=== PATIENT | male | born 1965 | race Caucasian/White ===

== ENCOUNTER 2017-08-19 22:12 | Emergency (ER) | payer OTHER ==
[~2017-08-19] VITALS: Ht 177.8 cm; Wt 88.9 kg
[2017-08-19 22:21] VITALS: BP 130/89
--- NOTE | 2017-08-19 22:25 | ED INFLUENZA/URI COMPLAINT ---
History of Present Illness General Chief Complaint: General Adult Stated Complaint: PT POSSIBLE FLU Source: patient Exam Limitations: no limitations Vital Signs & Intake/Output Vital Signs & Intake/Output Vital Signs Date Time Temp Pulse Resp B/P B/P Pulse O2 O2 Flow FiO2 Mean Ox Delivery Rate 08/20 2223 99 Room Air 08/19 2220 98.3 98 18 130/89 99 Room Air Allergies Coded Allergies: No Known Allergies (08/19/17) Reconcile Medications Amoxicillin 875 MG TABLET 1 TAB PO BID strep throat Triage Note: PT FROM HOME C/O SORE THROAT/FLU LIKE S/S. PT STATES "SINCE MY DAUGHTER IS HERE IN A ROOM I THINK I NEED TO BE CHECKED FOR THE FLU" PT STATES SINCE LAST THURSDAY SORE THROAT, DRY COUGH, FEVER ON THURSDAY AND CHILLS. PTS VSS, AFEBRILE IN TRIAGE. DIOGO Benson IN FOR EVAL. FLU SWAB AND THROAT CULTURE AND QUICK COLLECTED AND SENT. Triage Nurses Notes Reviewed? yes Onset: Abrupt Duration: week(s): (1), constant, continues in ED Timing: recent history Severity: moderate, severe No Modifying Factors: none HPI: 52-year-old male comes into the emergency room with sore throat for the past week with associated chills body aches. Mild runny nose. Cough earlier on but no cough currently. Comes in for further evaluation. His daughter is currently in the emergency room. (Baldo Martin) Past History Travel History Traveled to [place] past 21 day No Medical History Any Pertinent Medical History? see below for history Cardiovascular: hyperlipidemia Surgical History Surgical History: non-contributory Psychosocial History What is your primary language Tajik Tobacco Use: Current Daily Use Daily Tobacco Use Amount/Type: => 5 Cigarettes daily Family History Hx Contributory? No (Baldo Martin) Review of Systems Review of Systems Constitutional: Reports: see HPI. EENTM: Reports: see HPI. Respiratory: Reports: see HPI. Cardiovascular: Reports: no symptoms. GI: Reports: no symptoms. Genitourinary: Reports: no symptoms. Musculoskeletal: Reports: no symptoms. Skin: Reports: no symptoms. Neurological/Psychological: Reports: no symptoms. Hematologic/Endocrine: Reports: no symptoms. Immunologic/Allergic: Reports: no symptoms. All Other Systems: Reviewed and Negative (Baldo Martin) Physical Exam Physical Exam General Appearance: well developed/nourished, no apparent distress, alert, awake Head: atraumatic, normal appearance Eyes: Bilateral: normal appearance. Ears, Nose, Throat: normal ENT inspection, hearing grossly normal, pharyngeal erythema Neck: normal inspection Respiratory: no respiratory distress Cardiovascular: regular rate/rhythm Back: normal inspection Extremities: normal inspection, no edema Neurologic/Psych: awake, alert, oriented x 3, normal gait Skin: intact, normal color Core Measures Sepsis Present: No Sepsis Focused Exam Completed? No (Baldo Martin) Progress Differential Diagnosis: influenza, pneumonia, pharyngitis, sinusitis, strep pharyngitis Plan of Care: Orders Procedure Date/time Status RAPID VIRAL INFLUENZA A 08/19 2226 Complete THROAT CULTURE W/QUICK STREP 08/19 2226 Complete Microbiology 08/19 2226 NASOPHARYN: Influenza Virus A & B Rapid Smear - COMP Initial ED EKG: none (Baldo Martin) Departure Departure Disposition: HOME OR SELF CARE Condition: Stable Clinical Impression Primary Impression: Strep throat Additional Instructions: Taking amoxicillin as prescribed. Follow-up with her primary care doctor as needed. Return if any concerns worsening symptoms. Please go over all results of today's visit with your primary care doctor. Contact your primary care doctor to let them know you were here in the emergency room. There may be nonspecific findings which may not be related to your visit today here in the emergency room but may require further evaluation and chronic monitoring by your primary care doctor. If you had a laceration today the chance of foreign body always remains. You should follow-up with your primary care doctor for recheck in 3-5 days for a wound check. If you had an x-ray done there is a chance that a fracture could have been missed on initial read and you should follow-up with your primary care doctor for repeat x-rays if symptoms persist. If your blood pressure was elevated here in the emergency room please have rechecked by [facility] primary care doctor within the next 48. If you were prescribed a narcotic here in the emergency room or any type of controlled substances you're not allowed to drive while taking this medication or operate any type of heavy machinery. Narcotics can make you feel lightheaded dizziness nausea and can cause constipation. You may need to merchandise pickup/receiving associate a stool softener. Thank you for choosing [facility] emergency room. Please return to the emergency room immediately if you have any other concerns worsening of symptoms. Departure Forms: Customer Survey General Discharge Information Prescriptions: Current Visit Scripts Amoxicillin 1 TAB PO BID #20 TAB Comments 08/19/2017 11:26:14 PM Patient clinically looks well. Positive strep. Treat symptomatically. Return if any concerns (Baldo Martin) PA/WHITE KID BUFFER Co-Sign Statement Statement: ED Attending supervision documentation- [] I saw and evaluated the patient. I have also reviewed all the pertinent lab results and diagnostic results. I agree with the findings and the plan of care as documented in the PA's/WHITE KID BUFFER's documentation. [X] I have reviewed the ED Record and agree with the PA's/WHITE KID BUFFER's documentation. [] Additions or exceptions (if any) to the PAs/WHITE KID BUFFER's note and plan are summarized below: [] (Gale CROWE,Sharon)
[2017-08-19] MEDS ORDERED: AMOXICILLIN875 M1 PO (23:13)
== END 2017-08-19 23:23 ==
LOC: ERH 22:12
DX: J02.0 Streptococcal pharyngitis (principal); Z72.0 Tobacco use
CPT/HCPCS: 87804; 87804-59

== ENCOUNTER 2018-01-13 19:10 | Inpatient (IN) | payer OTHER ==
[~2018-01-13] VITALS: Ht 177.8 cm; Wt 92.6 kg
[~2018-01-13 19:10] MED LIST: AMOXICILLIN875 M1 PO
[2018-01-13] MEDS ORDERED: ASPIRIN EC81 M1 PO (19:50)
[2018-01-13] MEDS ORDERED: ATORVASTATIN CA20 M1 PO (19:51)
[2018-01-13] MEDS ORDERED: COLD & FLU SEV1 EACH PO (19:54)
[2018-01-13 20:03] LABS: ABSOLUTE BASOPHIL COUNT 0 /CUMM (0.0-0.2); ABSOLUTE EOSINOPHIL COUNT 0.1 /CUMM (0.0-0.7); ABSOLUTE LYMPH COUNT 2.8 /CUMM (1.2-3.4); ABSOLUTE MONOCYTE COUNT 0.7 /CUMM (0.10-0.60); BASOPHIL % 0.3 % (0.0-2.0); EOSINOPHIL % 0.8 % (0-5); GRANULOCYTE % 71.3 % (42.2-75.2); HEMATOCRIT 48.3 % (42-52); MEAN CORPUSCULAR HGB 31.9 PG (27.0-31.0); MEAN CORPUSCULAR HGB CONC 33.8 G/DL (33.0-37.0); MEAN CORPUSCULAR VOLUME 94.3 FL (80.0-94.0); MEAN PLATELET VOLUME 7.5 FL (7.4-10.4); PLATELET COUNT 296 /CUMM (130-400); RBC DISTRIBUTION WIDTH 13.6 % (11.5-14.5); RED BLOOD CELL CT 5.12 /CUMM (4.70-6.10); WHITE BLOOD CELL COUNT 12.6 /CUMM (4.8-10.8)
--- NOTE | 2018-01-13 20:41 | CT SCAN REPORT ---
EXAMINATION: CT ANGIOGRAM OF THE CHEST, ABDOMEN, AND PELVIS WITH AND WITHOUT CONTRAST CLINICAL INFORMATION: Back pain radiating to the abdomen. Dissection COMPARISON: None. DESCRIPTION: Initial noncontrast images through the chest were obtained. Subsequently, arterial phase multidetector volumetric imaging was performed through the chest following the administration of 150 mL Omnipaque 350 intravenous contrast. No contrast reaction reported Sagittal and coronal reformatted images were obtained on the technologist workstation. After extensive post-processing on a dedicated 3-D workstation, 3-D reformatted images were uploaded to PACS and reviewed as well. Total exam dose-length product 654 mGy-cm COMPARISON: None FINDINGS: VASCULAR: 1. Ascending thoracic aorta: No aneurysm or dissection. 3.6 cm diameter. 2. Thoracic aortic arch: No aneurysm or dissection. 2.8 cm diameter. 3. Descending thoracic aorta: No aneurysm or dissection. Mild noncalcified peripheral atherosclerotic disease. 3 cm diameter. 4. Abdominal aorta: Tortuous. There is focal aneurysmal dilatation of the anterior wall of the distal abdominal aorta, at most 2 cm in diameter compared to 1.6 cm more proximally. 5. Mesenteric arteries: Celiac and superior mesenteric arteries are patent. 6. Renal arteries: Two patent right renal arteries are seen. There is a single left renal artery. NONVASCULAR: LUNG: There is atelectasis and motion artifact at the lung bases. No focal consolidation or mass. PLEURA: No pleural effusion or pneumothorax. MEDIASTINUM: Normal heart size. No pericardial effusion. No hilar or mediastinal lymphadenopathy. CHEST WALL/AXILLA: No axillary or internal mammary lymphadenopathy. LIVER, GALLBLADDER, AND BILIARY TREE: The liver is normal in size, shape, and attenuation. No focal hepatic lesion or biliary ductal dilatation is present. The gallbladder is unremarkable with no evidence of radiopaque gallstones, gallbladder wall thickening, or obvious pericholecystic inflammatory changes. PANCREAS: Normal; no mass or surrounding fluid. SPLEEN: Normal size. No focal lesion. ADRENAL GLANDS: Normal; no mass. KIDNEYS AND URETERS: There are left upper pole water density simple cysts including a 5.7 cm superior cyst and a 4.9 cm cyst anterior to the upper pole of the left kidney. No hydronephrosis. No radiopaque urolithiasis. There is a 2.9 cm right upper pole renal cyst. GASTROINTESTINAL TRACT: Stomach and small bowel non-dilated. No colonic wall thickening or pericolonic inflammatory changes. Normal appendix. ABDOMINAL WALL: There is fat in the inguinal canals bilaterally. LYMPH NODES: No pathologically enlarged lymphadenopathy. BLADDER: No focal mass or wall thickening seen. No bladder calculi. PELVIC VISCERA: Mild prostatomegaly. The seminal vesicles are symmetric. OSSEOUS STRUCTURES: No acute or suspicious osseous abnormality. IMPRESSION: No aortic dissection. Aneurysmal dilation of the anterior aspect of the distal abdominal aorta to 2 cm in diameter, compared to 1.6 cm proximally. See aguilar image. Bilateral renal cysts.
--- NOTE | 2018-01-13 21:36 | History & Physical ---
Srinivas Chahal 01/13/18 2135: General Information and HPI MD Statement: I have seen and personally examined JORJE PHELAN and documented this H&P. The patient is a 52 year old M who presented with a patient stated chief complaint of [intractable back/abdominal pain]. 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 Pt was in obvious pain during interview, sedated 2/2 pain medication, history obtained mostly from chart review and pts . Pt had recently experienced back pain 2 days ago, unsure of what started it; in no relation to lifting or trauma, which he had called his PCP about. Per pt is healthy, does not typically complain about pain which concerned her seeing him in his current condition. had given OTC pain medications to patient and massage which did not help his pain, and his pain acutely worsened today after turning his body while reversing in a car. He stated that the pain went from the back and radiated bilaterally towards the abdomen; during examination stated pain was only in the "stomach muscle" at rest. States that movement makes the pain worse. States the pain is constant. Initially a 10/10 on acute presentation, but during time of clinical interview after getting medicated was a 4/10. Denies weakness, denies urinary/bowel incontinence, denied fevers/chills/night sweats. Denies any recent sick contacts. Denies trauma or heavy lifting recently. 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, is sedentary at his job ROS Positive for: Pain worse with movement Negative for: Fevers, Chills, Night sweats, Chest pain, Nausea/Vomiting, Urinary symptoms, Urinary/Fecal incontinence, Weakness/Decreased sensation Allergies/Medications Allergies: Coded Allergies: No Known Allergies (08/19/17) Past History Travel History Traveled to [place] past 21 day No Medical History Neurological: NONE EENT: NONE Cardiovascular: hyperlipidemia Respiratory: NONE Gastrointestinal: NONE Hepatic: NONE Renal: NONE Musculoskeletal: NONE Psychiatric: NONE Endocrine: NONE Blood Disorders: NONE Cancer(s): NONE EMULSION OPERATOR/Reproductive: NONE Surgical History Surgical History: non-contributory Review of Systems Review of Systems Constitutional: Reports: see HPI. Exam & Diagnostic Data Last 24 Hrs of Vital Signs/I&O Vital Signs Date Time Temp Pulse Resp B/P B/P Pulse O2 O2 Flow FiO2 Mean Ox Delivery Rate 01/14 0200 Nasal 2.0L Cannula 01/13 2300 98.1 74 18 132/86 90 01/13 2144 98.6 75 18 122/65 96 Room Air 01/13 1950 91 20 158/80 97 Room Air 01/13 1918 96 Room Air 01/13 1914 98.3 87 20 173/93 96 Room Air Intake & Output 01/14 0800 01/14 0000 01/13 1600 Intake Total 0 Output Total Balance 0 Intake, Oral 0 Patient 200 lb Weight Physical Exam General Appearance Alert, Oriented X3, Cooperative, Moderate Distress (obvious pain, diaphoretic) Skin No Rashes, diaphoretic Skin Temp/Moisture Exam: Cool/Diaphoretic Neck Supple, FROM Cardiovascular Regular Rate, Normal S1, Normal S2 Lungs Clear to Auscultation, Normal Air Movement Abdomen Soft, marked tenderness in dermatomal distribution T8-T11 Neurological Strength at 5/5 X4 Ext, Normal Tone, Sensation Intact, Cranial Nerves 3-12 NL, TTP, spinous process and paravertebral musculature b/l in lumbar spine Extremities No Edema, b/l paravertebral hypertonicity Body Front and Back (Adult) 1) TTP 2) TTP, hypertonicity Last 24 Hrs of Labs/Jt: Laboratory Tests 01/13/182220: Lactic Acid Cancelled 01/13/181952: Anion Gap 12, Estimated GFR > 60, BUN/Creatinine Ratio 13.3, Glucose 140 H, Lactic Acid 1.0, Calcium 9.4, Total Bilirubin 1.1, AST 17, ALT 30, Alkaline Phosphatase 78, Troponin I < 0.01, Total Protein 7.0, Albumin 4.1, Globulin 2.9, Albumin/Globulin Ratio 1.4, Lipase 82, CBC w Diff NO MAN DIFF REQ, RBC 5.12, MCV 94.3 H, MCH 31.9 H, MCHC 33.8, RDW 13.6, MPV 7.5, Gran % 71.3, Lymphocytes % 22.0, Monocytes % 5.6, Eosinophils % 0.8, Basophils % 0.3, Absolute Granulocytes 9.0 H, Absolute Lymphocytes 2.8, Absolute Monocytes 0.7 H, Absolute Eosinophils 0.1, Absolute Basophils 0 Assessment/Plan Assessment: Mr Phelan is a 52 M with a PMH of HLD who presents with a 2 day history of back pain acutely worsened prior to admission after a twisting motion that is intractable and radiates to the abdomen in a dermatomal distribution. He is admitted for intractable back pain. Differentials include muscular strain; muscular spasm; lumbar nerve impingement; less likely radiculopathy/spinal cord infarction/transection given no focal neuro deficits/weakness/decreased sensation. He will go for an MRI of the thoracic and lumbar spine in the morning. #Intractable back/abdominal pain -CTA neg for AAA -Lactate negative, doubt mesenteric ischemia given CTA findings -MRI in the AM for better imaging -Neurosurg consult depending on imaging findings -NSAIDs, Valium, Flexeril for pain management. Avoid opiates 2/2 sedation -PT eval when pain better controlled -Was straight leg raise + to B/L LE -Neuro checks #HLD -Continue home medications DVT PPx IV access Regular Diet Full Code Disposition pending PT eval As Ranked By This Provider Problem List: 1. Back pain Core Measures/Misc (03/01) Acute Coronary Syndrome ACS Diagnosis: No Congestive Heart Failure Congestive Heart Failure Diagnosis No Cerebrovascular Accident CVA/TIA Diagnosis: No VTE (View Protocol) VTE Risk Factors Age>40 No Mechanical VTE Prophylaxis d/t N/A MechProphylax Ordered No VTE Pharm Prophylaxis d/t NA PharmProphylax ordered Sepsis (View protocol) Sepsis Present: No If YES complete Sepsis Event Note If YES complete Sepsis Event Note Paul CROWE,Alee 01/14/18 0052: General Information and HPI Allergies/Medications Home Med list Aspirin (Ecotrin*) 81 MG TABLET.DR 1 TAB PO PRN HEART/BLOOD (Reported) Atorvastatin Calcium 20 MG TABLET 1 TAB PO DAILY CHOLESTEROL (Reported) Core Measures/Misc (03/01) Sepsis (View protocol) If YES complete Sepsis Event Note If YES complete Sepsis Event Note Attending MD Review Statement Attending Statement Attending MD Statement: examined this patient, discuss w/resident/PA/CANDLE MAKER, agreed w/resident/PA/CANDLE MAKER Attending Assessment/Plan: This is a 52-year-old gentleman with a past medical history significant for hyperlipidemia who presents to the hospital for evaluation of acute intractable back pain. Patient's history was primarily obtained by his who is at the bedside. She mentioned that he was reversing his car when he suddenly turned his neck to the right to look back he developed shooting pain involving his shoulders, trapezius and mid back radiating to his mid abdomen bilaterally. Patient's states that he has been complaining of pain over his scapula and trapezius over the past 1-2 days. 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 In the emergency department he remained hemodynamically stable and had a CTA of the chest and abdomen to rule out dissection, these results were negative. There is also no evidence of mesenteric ischemia or other intra-abdominal abnormalities. Patient received 4 mg of morphine IV 3 and was sedated upon my evaluation, but arousable. At approximately 4:30 AM the patient's pain medication began to wear off and he developed excruciating back and abdominal pain, hypertensive urgency and sinus tachycardia. Given the original negative results for the CTA of the chest and abdomen there was a concern that the patient may need to be developing an acute change in his clinical status therefore a stat CT scan of the entire spine with IV contrast was ordered in order to evaluate any additional pathology which could be explaining the patient's intractable pain. The differential diagnosis at that time included herniated disc, muscle tear, pneumoperitoneum or less likely spinal cord compression. The CT results were reported to me as free air under the diaphragm likely secondary to perforated viscus. I instructed the learning and development intern and resident to immediately contact surgery. Patient was successfully taken to the OR a few hours later and transferred to the medical ICU. Opal Anand 01/14/18 0412: Core Measures/Misc (03/01) Sepsis (View protocol) If YES complete Sepsis Event Note If YES complete Sepsis Event Note Resident Review Statement Resident Statement: examined this patient, discussed with learning and development intern, agreed with learning and development intern, discussed with family, reviewed EMR data (avail), discussed with nursing , discussed with case mgmt, reviewed images, amended to note Other Findings: Mr. Phelan is a 52yo M w/ PMH of HLD, AAA 1.6cm -> 2cm on ER imaging, BIBA to ER from [facility] w/ acute onset of 10/10 sharp upper ab pain w/ diaphoresis, w/o N/V/D. Patient appeared to be lethargic to answer questions after being medicated with morphine for pain control during our clinical interaction in ER. Per triaging notes, patient was AO x 3 and conversational on ER presentation, and the pain was sudden onset when he turned his head/body during adflyer shopping. Patient had no previous similar episodes. THe back pain started 2-3 days ago, with recent falls about 2 weeks ago. He was in [facility] to get this pain meds prescribed by PCP. On admission, Vitals: stable afebrile, BP 173/92 -> 158/80, HR 91, RR 20, 97% RA Physical exam was limited due to patient's lethargy. However, pertinent findings including 4-6/10 pain on mostly thoracic/lumbar paraspinal muscles on palpation, and positive straight leg raise to 30 degree bilaterally, without shooting pain down the thigh/loss of sensations/neurological deficit. -CBC: mild leukocytosis 12.6, H/H 16.3/48.3, -CMP: unremarkable w/ -ve trop x 1, lipase 82 -UA/Microbiology: pending. previous microbiology w/ Strept A throat -Imagings: CTA AB/Chest No aortic dissection. Aneurysmal dilation of the anterior aspect of the distal abdominal aorta to 2 cm in diameter, compared to 1.6 cm proximally. See aguilar image. Bilateral renal cysts. -EKG: NSR w/o significant ST-T abnormalities, unchanged from previous. -Last Echo: None -Interventions in ER: NS bolus x 1, Morphine 4mg IV x 3, Toradol 30mg IV x 1, Valium 5mg PO x 1 Problem list/Assessment/Hospital Course: #Intractable back/ab pain w/o clear etiology,pending further eval - Presumably more musculoskeletal based on history without any neurological deficit. Unlikely sciatica as not typical on PE. Radiculopathy could also be contributing factor based on positive straight leg raise but would need MRI in the AM. 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 - O2 if needed, however currently under RA stable - PT/OT per clinical course once pain alleviated. - Continue home meds - Pending MRI spine to rule out any osteo process in the AM. May require neurosurgery input if any positive findings including radiculopathy/cord compression. - Pain per pathway, currently patient was controlled with morphine/toradol however was exteremly lethargy on admission due to opioids. - Will continue w/ Tylenol/Toradol with flexeril/lidoderm patch, and avoid opioids as much as possible. DVT prophylaxis Pharm PPX + ALPS Regular Diet IV Access: Peripheral IV Full Code update 0630 01/14/2018 Critical result was called back from [facility] regarding patient's repeated imaging as below: "The primary finding is that of a moderate amount of free air within the abdominal cavity. This therefore is a sign of a perforated viscus which has occurred since yesterday at 7:26 PM. Extensive fat stranding is seen in the region of the gastric outlet and proximal duodenum and therefore the site of perforation is thought to be the duodenum." Immediately notified surgical PA on floor and placed stat consult for on-call surgeon (Dr. Mejia). Discontinued Flexeril/Toradol, will control pain w/ dilaudid. Pending Surgery consult for OR. Family updated at bedside regarding plans. dilaudid.
--- NOTE | 2018-01-13 21:54 | ED GENERAL ADULT ---
History of Present Illness General Chief Complaint: Abdominal Pain/Flank Pain Stated Complaint: INTRACTABLE BACK PAIN Source: patient Exam Limitations: no limitations Vital Signs & Intake/Output Vital Signs & Intake/Output Vital Signs Date Time Temp Pulse Resp B/P B/P Pulse O2 O2 Flow FiO2 Mean Ox Delivery Rate 01/14 1854 100.3 01/14 1600 Nasal 2.0L Cannula 01/14 1600 99.0 109 18 136/90 99 Nasal 2.0L Cannula 01/14 1446 96 Nasal 2.0L Cannula 01/14 1300 98.5 84 14 130/88 95 Nasal 2.0L Cannula 01/14 0800 Nasal 2.0L Cannula 01/14 0638 97.7 107 22 178/110 93 01/14 0631 98.8 140 24 190/100 92 01/14 0200 Nasal 2.0L Cannula 01/13 2300 98.1 74 18 132/86 90 01/13 2144 98.6 75 18 122/65 96 Room Air ED Intake and Output 01/14 0000 01/13 1200 Intake Total 0 Output Total Balance 0 Intake, Oral 0 Patient 200 lb Weight Allergies Coded Allergies: No Known Allergies (08/19/17) Reconcile Medications Aspirin (Ecotrin*) 81 MG TABLET.DR 1 TAB PO PRN HEART/BLOOD (Reported) Atorvastatin Calcium 20 MG TABLET 1 TAB PO DAILY CHOLESTEROL (Reported) Triage Note: PT BIBA FROM [facility] WHERE PT WAS IN LINE D/T GENERALLY NOT FEELING WELL X1 WEEK. PT EXPERIENCED ACUTE ONSET OF 10/10 SHARP UPPER ABD PAIN INTERMITTENTLY. PT DIAPHORETIC, MOANING ON STRETCHER. DENIES N/V/D. Triage Nurses Notes Reviewed? yes Onset: Abrupt Duration: minute(s): Timing: constant HPI: 52-year-old male with a history of hyperlipidemia presenting with sudden onset of abdominal pain and back pain just prior to arrival. Patient reports that he has had mild upper and lower back pain over the past week. The pain has been worse with movement, there was no acute back injury or recent strenuous activity. Saw his PMD today and was given a prescription for pain medication and muscle relaxer, and given a slip for outpatient x-rays of the thoracic and lumbar spine which he has not yet completed. Pt was backing out of his driveway to go to the pharmacy and leaf size picker his medication, when backing out of his driveway he turned to look over his right shoulder as he was backing up and developed sudden onset of diffuse abdominal pain that is radiating to his back. Pain has no worsening or alleviating factors. Pt continued driving in an attempt to get to the pharmacy and get his pain medications hoping they would help to alleviate his discomfort. While waiting in line at the pharmacy he became pale and diaphoretic with worsening abdominal pain. Pharmacy staff called EMS. Upon arrival to the ED pt is in severe distress with pain, rolling around on the stretcher holding his abdomen, pale, and diaphorectic with sweat drenching through his t-shirt. Denies fevers, NVDC, melena, bloody stoolls, dysuria, numbness/paresthesias to the extremities, saddle anesthesia, urinary/bowel incontinence/retention, or IVDU. (Vikki Chavez) Past History Travel History Traveled to [place] past 21 day No Medical History Any Pertinent Medical History? see below for history Neurological: NONE EENT: NONE Cardiovascular: hyperlipidemia Respiratory: NONE Gastrointestinal: NONE Hepatic: NONE Renal: NONE Musculoskeletal: NONE Psychiatric: NONE Endocrine: NONE Blood Disorders: NONE Cancer(s): NONE TISSUE PACKER/Reproductive: NONE Surgical History Surgical History: non-contributory Psychosocial History What is your primary language Chinese Tobacco Use: Refused to answer Family History Hx Contributory? No (Vikki Chavez) Review of Systems Review of Systems Constitutional: Reports: no symptoms. EENTM: Reports: no symptoms. Respiratory: Reports: no symptoms. Cardiovascular: Reports: no symptoms. GI: Reports: abdominal pain. Denies: bloating, constipation, diarrhea, distention, melena, nausea, bloody stool, vomiting. Genitourinary: Reports: no symptoms. Musculoskeletal: Reports: back pain. Skin: Reports: no symptoms. Neurological/Psychological: Reports: no symptoms. Hematologic/Endocrine: Reports: no symptoms. Immunologic/Allergic: Reports: no symptoms. All Other Systems: Reviewed and Negative (Vikki Chavez) Physical Exam Physical Exam General Appearance: severe distress, diaphoretic rolling around on the stretcher holding his abdomen Head: atraumatic, normal appearance Eyes: Bilateral: normal appearance. Neck: normal inspection Respiratory: normal breath sounds, lungs clear Cardiovascular: regular rate/rhythm Gastrointestinal: normal bowel sounds, soft, tenderness (diffuse, does not localize), no rebound or guarding no distension Back: normal inspection, no vertebral tenderness, +tenderness to palpation over bilateral paraspinal thoracic muscles, no midline TTP, lumbar back has unremarkable exam Extremities: normal inspection, bilateral lower extremities are neurovascularly intact Neurologic/Psych: awake, alert, oriented x 3 Skin: intact, normal color, diaphoresis Core Measures ACS in differential dx? No CVA/TIA Diagnosis: No Sepsis Present: No Sepsis Focused Exam Completed? No (Mynor LIND,Vikki) Progress Differential Diagnoses I considered the following diagnoses in my evaluation of the patient: [aortic dissection vs perforated viscous vs bowel obstruction vs pancreatitis vs biliary vs appendicitis vs muscular strain/spasms, low concern for epidural abscess vs cauda equina] Plan of Care: Orders Procedure Date/time Status XRY-CHEST XRAY, TWO VIEWS 01/15 0700 Active PHOSPHORUS 01/15 0500 Active MAGNESIUM 01/15 0500 Active HEPATIC FUNCTION PANEL 01/15 0500 Active CBC WITHOUT DIFFERENTIAL 01/15 0500 Active BASIC ELECTROLYTES PLUS BUN&CR 01/15 0500 Active Nothing by Mouth 01/14 B Active PHOSPHORUS 01/14 1800 Active MAGNESIUM 01/14 1800 Active LACTIC ACID 01/14 1800 Active HEPATIC FUNCTION PANEL 01/14 1800 Active CBC WITHOUT DIFFERENTIAL 01/14 1800 Complete BASIC ELECTROLYTES PLUS BUN&CR 01/14 1800 Active NGT 01/14 1504 Active Wound Care/Dressing 01/14 1446 Active Weight 01/14 1446 Active VTE Mechanical Prophylaxis 01/14 1446 Active Vital Signs 01/14 1446 Active Turn and Reposition 01/14 1446 Active Drains/Tubes 01/14 1446 Complete Teach/Educate 01/14 144 Active Skin Integrity Protocol 01/14 1446 Active Skin/Pressure Ulcer Assess (Sk 01/14 1446 Active Precautions 01/14 1446 Active Pain Treatment and Response 01/14 1446 Active Nutritional Intake, Monitor 01/14 1446 Active Isolation 01/14 1446 Active CIWA 01/14 1446 Complete Patient Care Conference 01/14 1446 Active Activity/Ambulation 01/14 1446 Active VRE ACTIVE SURVIELLANCE 01/14 1312 Active ACTIVE SURVEILLANCE NARES 01/14 1312 Active Transfer patient to 01/14 0742 Active LACTIC ACID 01/14 0600 Complete CBC WITHOUT DIFFERENTIAL 01/14 0600 Complete BASIC ELECTROLYTES PLUS BUN&CR 01/14 0600 Complete CULTURE,URINE 01/14 0431 Active OXYGEN SETUP (GEN) 01/14 UNK Complete Admit to inpatient 01/14 UNK Active Lab Add-on Test 01/14 UNK Active Intake & Output 01/14 UNK Active [place], Insertion/Removal/Asses 01/14 UNK Active Pathway - chart 01/14 2224 Active House Staff 01/13 222 Active Vital Signs 01/14 2216 Active Teach/Educate 01/14 2216 Active Pain Treatment and Response 01/14 2216 Active Nutritional Intake, Monitor 01/14 2216 Active Isolation 01/14 2216 Active Intake & Output 01/14 2216 Active Patient Care Conference 01/14 2216 Active Activity/Ambulation 01/14 2216 Active Patient Data 01/14 2132 Active Saline Lock 01/[address] in observation 01/14 2120 Active Vital Signs 01/14 2120 Active Activity/Ambulation 01/14 2120 Active Code Status 01/14 2120 Active Add-on Test (ER Only) 01/14 2012 Active EKG 01/14 2012 Active TROPONIN LEVEL 01/13 195 Complete Intake & Output 01/13 1918 Active VTE Mechanical Prophylaxis 01/13 UNK Active Vital Signs 01/13 UNK Complete Activity/Ambulation 01/13 UNK Complete Current Medications Sig/Alana Start time Last Medication Dose Stop Time Status Admin Fluconazole 200 MG DAILY 01/15 0900 AC (Diflucan) 01/16 0959 Sodium Chloride 100 ML (Normal Saline 0.9%) Heparin Sodium 5,000 UNIT Q8 01/14 2200 AC (Porcine) Sucralfate 1 GM Q8 01/14 2200 UNVr (Carafate Suspension) Sodium Chloride 500 ML BOLUS ONE 01/14 1915 UNVr (Normal Saline 0.9%) 01/14 2014 Atorvastatin Calcium 20 MG 1700 01/14 1700 CAN (Lipitor) Phenol 2 SPRAY Q2P PRN 01/14 1700 AC 01/14 (Chloraseptic 1823 (Phenaseptic) [place]) Acetaminophen 1,000 MG Q6P PRN 01/14 1200 AC 01/14 (Ofirmev) 1854 N/A 1 UNIT (No Carrier) Dextrose/Sodium 1,000 ML Q8H / 1200 AC 01/14 Chloride 1330 (D5W-1/2 Normal Saline 1000ML) Pantoprazole Sodium 40 MG DAILY 01/14 1153 AC 01/14 (Protonix) 1352 Aspirin Buffered 81 MG DAILY 01/14 900 CAN (Ecotrin) Enoxaparin Sodium 40 MG DAILY 01/14 900 CAN (Lovenox) Lidocaine 1 PAT DAILY 01/14 900 AC (Lidoderm) Nicotine 21 MG DAILY 01/14 900 AC (Nicoderm) Promethazine HCl 25 MG Q4P PRN 01/14 0745 AC 01/14 (Phenergen) 01/21 0744 0749 Ampicillin Sodium/ 3,000 MG Q6 01/14 0735 AC 01/14 Sulbactam Sodium 1823 (Unasyn) Sodium Chloride 100 ML (Normal Saline 0.9%) Hydromorphone HCl 1 MG Q4 HRS NEEDED PRN 01/14 0645 AC (Dilaudid) Methylprednisolone 125 MG ONCE ONE 01/14 445 CAN (Solu Medrol) 01/14 044 Laboratory Tests 01/14/18 1840: Lactic Acid Cancelled 01/14/18 1753: Sodium Pending, Potassium Pending, Chloride Pending, Carbon Dioxide Pending, Anion Gap Pending, BUN Pending, Creatinine Pending, BUN/Creatinine Ratio Pending , Lactic Acid Pending, Phosphorus Pending, Magnesium Pending, Total Bilirubin Pending, Direct Bilirubin Pending, AST Pending, ALT Pending, Alkaline Phosphatase Pending, Total Protein Pending, Albumin Pending, CBC w Diff NO MAN DIFF REQ, RBC 5.50, MCV 95.1 H, MCH 31.9 H, MCHC 33.6, RDW 13.7, MPV 8.7, Gran % 90.5 H, Lymphocytes % 5.5 L, Monocytes % 3.9, Eosinophils % 0, Basophils % 0.1, Absolute Granulocytes 18.7 H, Absolute Lymphocytes 1.1 L, Absolute Monocytes 0.8 H, Absolute Eosinophils 0, Absolute Basophils 0 01/14/18 1000: Lactic Acid 2.3 H 01/14/18 0630: Anion Gap 14, Estimated GFR > 60, BUN/Creatinine Ratio 20.0, CBC w Diff MAN DIFF ORDERED, RBC 6.10, MCV 95.3 H, MCH 31.3 H, MCHC 32.8 L, RDW 13.9, MPV 8.3, Gran % 93.4 H, Lymphocytes % 3.4 L, Monocytes % 3.2, Eosinophils % 0, Basophils % 0, Absolute Granulocytes 20.2 H, Segmented Neutrophils 73, Band Neutrophils 16 H, Absolute Lymphocytes 0.7 L, Lymphocytes 6 L, Monocytes 5, Absolute Monocytes 0.7 H, Absolute Eosinophils 0, Absolute Basophils 0, Platelet Estimate VERIFIED BY SMEAR, Normocytic RBCs VERIFIED, Normochromic RBCs VERIFIED 01/13/182220: Lactic Acid Cancelled 01/13/181952: Anion Gap 12, Estimated GFR > 60, BUN/Creatinine Ratio 13.3, Glucose 140 H, Lactic Acid 1.0, Calcium 9.4, Total Bilirubin 1.1, AST 17, ALT 30, Alkaline Phosphatase 78, Troponin I < 0.01, Total Protein 7.0, Albumin 4.1, Globulin 2.9, Albumin/Globulin Ratio 1.4, Lipase 82, CBC w Diff NO MAN DIFF REQ, RBC 5.12, MCV 94.3 H, MCH 31.9 H, MCHC 33.8, RDW 13.6, MPV 7.5, Gran % 71.3, Lymphocytes % 22.0, Monocytes % 5.6, Eosinophils % 0.8, Basophils % 0.3, Absolute Granulocytes 9.0 H, Absolute Lymphocytes 2.8, Absolute Monocytes 0.7 H, Absolute Eosinophils 0.1, Absolute Basophils 0 Microbiology 01/14 1325 UPPER RESP: Surveillance Culture - RECD 01/14 1325 GI: Surveillance Culture - RECD 01/14 0431 URINE ROUT: Urine Culture - COLB Given the patient's amount of distress on arrival to the emergency department he was immediately given pain medications and immediately taken to CT scan before labs were done or creatinine was obtained as there was a high concern for an acute abdomen and surgical emergency. He denied any known renal dysfunction.. CTA scan FINDINGS: VASCULAR: 1. Ascending thoracic aorta: No aneurysm or dissection. 3.6 cm diameter. 2. Thoracic aortic arch: No aneurysm or dissection. 2.8 cm diameter. 3. Descending thoracic aorta: No aneurysm or dissection. Mild noncalcified peripheral atherosclerotic disease. 3 cm diameter. 4. Abdominal aorta: Tortuous. There is focal aneurysmal dilatation of the anterior wall of the distal abdominal aorta, at most 2 cm in diameter compared to 1.6 cm more proximally. 5. Mesenteric arteries: Celiac and superior mesenteric arteries are patent. 6. Renal arteries: Two patent right renal arteries are seen. There is a single left renal artery. NONVASCULAR: LUNG: There is atelectasis and motion artifact at the lung bases. No focal consolidation or mass. PLEURA: No pleural effusion or pneumothorax. MEDIASTINUM: Normal heart size. No pericardial effusion. No hilar or mediastinal lymphadenopathy. CHEST WALL/AXILLA: No axillary or internal mammary lymphadenopathy. LIVER, GALLBLADDER, AND BILIARY TREE: The liver is normal in size, shape, and attenuation. No focal hepatic lesion or biliary ductal dilatation is present. The gallbladder is unremarkable with no evidence of radiopaque gallstones, gallbladder wall thickening, or obvious pericholecystic inflammatory changes. PANCREAS: Normal; no mass or surrounding fluid. SPLEEN: Normal size. No focal lesion. ADRENAL GLANDS: Normal; no mass. KIDNEYS AND URETERS: There are left upper pole water density simple cysts including a 5.7 cm superior cyst and a 4.9 cm cyst anterior to the upper pole of the left kidney. No hydronephrosis. No radiopaque urolithiasis. There is a 2.9 cm right upper pole renal cyst. GASTROINTESTINAL TRACT: Stomach and small bowel non-dilated. No colonic wall thickening or pericolonic inflammatory changes. Normal appendix. ABDOMINAL WALL: There is fat in the inguinal canals bilaterally. LYMPH NODES: No pathologically enlarged lymphadenopathy. BLADDER: No focal mass or wall thickening seen. No bladder calculi. PELVIC VISCERA: Mild prostatomegaly. The seminal vesicles are symmetric. OSSEOUS STRUCTURES: No acute or suspicious osseous abnormality. IMPRESSION: No aortic dissection. Aneurysmal dilation of the anterior aspect of the distal abdominal aorta to 2 cm in diameter, compared to 1.6 cm proximally. See aguilar image. Bilateral renal cysts. Patient and his were both informed of the incidental findings of renal cysts and abdominal aortic aneurysm. Explained that these will need to be followed by his PMD and they expressed understanding. EKG non-ischemic, trop neg Labs unremarkable with the exception of mild leukocytosis of 12 Lactic is WNL Pt was given 8mg morphine, 5mg valium, and 30mg toradol (toradol given after neg CT scan result), and still with poor pain control. He remains diaphoretic and distressed with pain. Given the patient's ill appearance and unremarkable workup the case was discussed with the ED attending Dr. Kc. The ED attending and I then evaluated the patient together and still could find no clear etiology for his pain. Given his ill appeance and persistent pain he was placed in observation to [facility] for repeat exams, serial labs to assess for changes, continued pain mangement, and inpatient MRI to evaluate his back pain. Initial ED EKG: rhythm, no ST T wave changes (Vikki Chavez) Departure Departure Disposition: STILL A PATIENT Condition: Stable Clinical Impression Primary Impression: Abdominal pain Secondary Impressions: Back pain Referrals: Unknown (PCP/Family) Departure Forms: Customer Survey General Discharge Information Observation Note Spoke With: Alee Miller MD Patient In: Non-ED OBS Care Area Rationale for Observation: My rational for observation is as follows [repeat exams, serial labs, MRI thoracic and lumbar spine, pain medications]. (Vikki Chavez) PA/FACILITY MAINTENANCE SUPERVISOR Co-Sign Statement Statement: ED Attending supervision documentation- x I saw and evaluated the patient. I have also reviewed all the pertinent lab results and diagnostic results. I agree with the findings and the plan of care as documented in the PA's/FACILITY MAINTENANCE SUPERVISOR's documentation. Patient with severe back pain radiating to abdomen with negative CTA chest/abd/pelvis unable to position himself in bed despite multiple analgesics. Abd and back diffusely tender without pathology at this time. Requires hospitalization for further evaluation and management. [] I have reviewed the ED Record and agree with the PA's/FACILITY MAINTENANCE SUPERVISOR's documentation. [] Additions or exceptions (if any) to the PAs/FACILITY MAINTENANCE SUPERVISOR's note and plan are summarized below: [] (Juan Kc MD) Critical Care Note Critical Care Note Critical Care Time: 30-74 min (Vikki Chavez) summarized below: [] (Juan Kc MD) Critical Care Note Critical Care Note Critical Care Time: 30-74 min (Vikki Chavez)
[2018-01-13 23:00] VITALS: BP 132/86
--- NOTE | 2018-01-14 06:14 | CT SCAN REPORT ---
EXAMINATION: CT THOR SPINE W WO IV CONTRAST, CT LUMB SPINE W WO IV CONTRAST, CT CERV SPINE W WO IV CONTRAST CLINICAL INFORMATION: Acute onset of back pain. No trauma. 52-year-old male patient. COMPARISON: CT of the chest abdomen and pelvis done yesterday. (No osseous abnormalities). TECHNIQUE: Axial scans of the entire spine prior to and following the intravenous injection of 95 mL Optiray 320. Coronal and sagittal reformats obtained at the acquisition workstation. FINDINGS: The primary finding is that of a moderate amount of free air within the abdominal cavity. This therefore is a sign of a perforated viscus which has occurred since yesterday at 7:26 PM. Extensive fat stranding is seen in the region of the gastric outlet and proximal duodenum and therefore the site of perforation is thought to be the duodenum. In addition, there is free intraperitoneal fluid in the pericolic gutters and also the pelvic recesses. SPINE: Vertebral height filled alignment are normal. There is no evidence of fracture. No acute osseous abnormalities are seen. CHEST: LUNG: Progressive airspace and interstitial opacities with fluid in the interlobular septae consistent with edema localized to the lower lobes. Question aspiration. PLEURA: Trace bilateral pleural effusions. MEDIASTINUM: Normal heart size. No pericardial effusion. No hilar or mediastinal lymphadenopathy. Scattered subcentimeter lymph nodes in the mediastinum. VASCULAR: No thoracic aortic aneurysm or dissection. Central pulmonary arteries opacify normally. CHEST WALL/AXILLA: No axillary or internal mammary lymphadenopathy. ABDOMEN/PELVIS: LIVER, GALLBLADDER, AND BILIARY TREE: Normal. PANCREAS: Normal; no mass or surrounding fluid. SPLEEN: Normal size. No focal lesion. ADRENAL GLANDS: Normal; no mass. KIDNEYS AND URETERS: Multiple cysts as before. GASTROINTESTINAL TRACT: Due to the fat stranding in the region of the gastric outlet and duodenum, the source of the intestinal perforation is thought to be a duodenal ulcer. IMPRESSION: Acute onset of free intraperitoneal air and free fluid due to a perforated viscus most likely the duodenum. Increasing bibasilar lung disease which could reflect aspiration. This critical result was discussed with Dr. Chahal at 5:54 AM on January 14 and it was ascertained that the content and urgency of the report was understood at the time of direct communication.
[2018-01-14 06:31] VITALS: BP 190/100
[2018-01-14 06:38] VITALS: BP 178/110
--- NOTE | 2018-01-14 07:42 | Event Note ---
Event Note Event Note: Pt evaluated due to acute abdomen and free air on CT scan. Hx obtained from due to pts clinical condition. Patient has been having epigastric abdominal pain radiating to his back for many months if not years. He has been seen by his primary care doctor for this, had CT and ultrasound which have been negative, is had gotten to the point where he is taking opiate pain relief for this pain provided by he pcp. Per the , he does smoke, drinks multiple cups of coffee per day, takes NSAIDs frequently but not daily, does not drink alcohol , appears to be a positive family history of ulcer disease with patient's father. Pain suddenly became worse yesterday and worse overnight and CT scan reveals perforated viscus, likely duodenal with large amounts of free air. Patient evaluated and he is diaphoretic, and severe pain, acute abdomen. I have asked the nursing staff to put a second IV, we will provide fluid resuscitation and IV antibiotics with Unasyn 3 g every 6 hours. He will require operative management urgently. Discussed with Vick Gonzalez MD who is on his way in to see the patient
[2018-01-14 08:29] LABS: ABSOLUTE BASOPHIL COUNT 0 /CUMM (0.0-0.2); ABSOLUTE EOSINOPHIL COUNT 0 /CUMM (0.0-0.7); ABSOLUTE GRANULOCYTE CT 20.2 /CUMM (1.4-6.5); ABSOLUTE LYMPH COUNT 0.7 /CUMM (1.2-3.4); ABSOLUTE MONOCYTE COUNT 0.7 /CUMM (0.10-0.60); BASOPHIL % 0 % (0.0-2.0); EOSINOPHIL % 0 % (0-5); GRANULOCYTE % 93.4 % (42.2-75.2); MEAN CORPUSCULAR HGB 31.3 PG (27.0-31.0); MEAN CORPUSCULAR HGB CONC 32.8 G/DL (33.0-37.0); MEAN CORPUSCULAR VOLUME 95.3 FL (80.0-94.0); MEAN PLATELET VOLUME 8.3 FL (7.4-10.4); PLATELET COUNT 296 /CUMM (130-400); RBC DISTRIBUTION WIDTH 13.9 % (11.5-14.5)
[2018-01-14 08:42] LABS: HEMATOCRIT 58.1 % (42-52); WHITE BLOOD CELL COUNT 21.7 /CUMM (4.8-10.8)
--- NOTE | 2018-01-14 09:25 | Cons- General Surgery ---
General Information and HPI Consulting Request Date of Consult: 01/14/18 Requested By: Srikanth CROWE,Salma History of Present Illness: CC: Back and abdominal pain HPI: Otherwise healthy 52-year-old yo non-diabetic smoker not overweight dacia has been having back pain recently both sides upper started last Thursday then yesterday while turning around in his car got a sharp pain but there was an abdominal component as well came straight to the emergency room admitted for workup of back pain. Recently he has been taking Percocet Motrin and Advil for the pain is recalls over a year ago Spring he was worked up for peptic ulcer but no endoscopy was done she describes similar back pain then 2. Otherwise no recent nausea vomiting fevers sweats changes in bowel habits weight or appetite no family history of peptic ulcer disease or vascular disease. Overnight his pain persisted and a CT scan was done which showed signs of perforated viscus and surgery was called. The pain now patient describes it being upper abdomen hurts to move and breathe. I've reviewed the [facility]. No history of GERD, PUD, bleeding problems, heart disease or issues with anesthesia. Family history no heart disease or cancer. Surgical Hx no prior abdominal surgery Allergies/Medications Allergies: Coded Allergies: No Known Allergies (08/19/17) Home Med List: Aspirin (Ecotrin*) 81 MG TABLET.DR 1 TAB PO PRN HEART/BLOOD (Reported) Atorvastatin Calcium 20 MG TABLET 1 TAB PO DAILY CHOLESTEROL (Reported) Current Medications: I rev Current Medications Sig/Alana Start time Last Medication Dose Route Stop Time Status Admin Acetaminophen 650 MG Q6P PRN 01/13 2230 DC PO Acetaminophen 1,000 MG Q6P PRN 01/13 2230 DC 01/13 IV 2227 Acetaminophen 0 .STK-MED ONE 01/13 2227 DC IV Ampicillin Sodium/ 3,000 MG Q6 01/14 0735 AC 01/14 Sulbactam Sodium IV 0759 Sodium Chloride 100 ML Aspirin Buffered 81 MG DAILY 01/14 0900 CAN PO Atorvastatin Calcium 20 MG 1700 01/14 1700 CAN PO Cyclobenzaprine HCl 10 MG TID 01/13 2359 DC 01/13 PO 2344 Cyclobenzaprine HCl 5 MG .STK-MED ONE 01/13 2342 DC PO 01/13 2343 Cyclobenzaprine HCl 5 MG .STK-MED ONE 01/13 2334 DC PO 01/13 2335 Diazepam 5 MG ONCE ONE 01/13 2100 DC 01/13 PO 01/13 Diazepam 0 .STK-MED ONE 01/13 2059 DC PO Enoxaparin Sodium 40 MG DAILY 01/14 900 CAN SC Hydromorphone HCl 1 MG Q4 HRS NEEDED PRN 01/14 0645 AC IV Hydromorphone HCl 1 MG ONCE ONE 01/145 DC 01/14 IV 01/14 0446 0433 Ketorolac 30 MG Q6P PRN 01/13 2345 DC 01/13 Tromethamine IV 01/18 2344 2344 Ketorolac 30 MG ONCE ONE 01/13 2100 DC 01/13 Tromethamine IV 01/13 Ketorolac 0 .STK-MED ONE 01/13 2058 DC Tromethamine .ROUTE Lidocaine 1 PAT DAILY 01/14 900 AC EXT Methylprednisolone 125 MG ONCE ONE 01/14 445 CAN IV 01/14 446 Morphine Sulfate 4 MG ONCE ONE 01/13 2115 DC 01/13 IV 01/13 Morphine Sulfate 0 .STK-MED ONE 01/13 2110 DC .ROUTE Morphine Sulfate 4 MG ONCE ONE 01/13 1945 DC 01/13 IV 01/13 Morphine Sulfate 4 MG ONCE ONE 01/13 1930 DC 01/13 IV 01/13 Morphine Sulfate 0 .STK-MED ONE 01/13 1925 DC .ROUTE Morphine Sulfate 0 .STK-MED ONE 01/13 1922 DC .ROUTE Nicotine 21 MG DAILY 01/14 900 AC TOP Oxycodone/ 2 TAB Q6P PRN 01/13 2230 DC Acetaminophen PO Promethazine HCl 25 MG Q4P PRN 01/14 0745 AC 01/14 IV 01/21 0744 0749 Sodium Chloride 1,000 ML BOLUS ONE 01/14 0745 DC 01/14 IV 01/14 0844 0750 Sodium Chloride 1,000 ML ONCE ONE 01/14 0615 AC 01/14 IV 01/14 1254 0638 Sodium Chloride 1,000 ML BOLUS ONE 01/13 193 DC 01/13 IV 01/13 2029 1950 Past History Medical History Blood Transfusion Hx: No Neurological: NONE EENT: NONE Cardiovascular: hyperlipidemia Respiratory: NONE Gastrointestinal: NONE Hepatic: NONE Renal: NONE Musculoskeletal: NONE Psychiatric: NONE Endocrine: NONE Blood Disorders: NONE Cancer(s): NONE 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 Surgical History Pertinent Surgical History: non-contributory Psychosocial History Smoking Status: Current Everyday Smoker Review of Systems Review of Systems: Constitutional: No fever, sweats or weight loss ENMT: No sore throat Cardiovascular: No chest pain, palpitations or leg swelling Respiratory: No shortness of breath, cough, or sputum or dyspnea on exertion GI: No GERD or bleeding per rectum : No dysuria or hematuria Musculoskeletal: No new muscle weakness, bone or joint pain Skin / Breast: No jaundice, rashes or itching Psychiatric: No history of drug or alcohol abuse no depression or anxiety Hematologic / lymphatic system: No problems with excessive bleeding, bruising, or blood clots Exam & Diagnostic Data Vital Signs and I&O I rev Vital Signs Date Time Temp Pulse Resp B/P B/P Pulse O2 O2 Flow FiO2 Mean Ox Delivery Rate 01/14 638 97.7 107 22 178/110 93 01/14 0631 98.8 140 24 190/100 92 01/14 0200 Nasal 2.0L Cannula 01/13 2300 98.1 74 18 132/86 90 01/13 2144 98.6 75 18 122/65 96 Room Air 01/13 1950 91 20 158/80 97 Room Air 01/13 1918 96 Room Air 01/13 191 98.3 87 20 173/93 96 Room Air I rev Intake & Output 01/14 1600 01/14 0801/14 0000 01/13 1600 01/13 0800 01/13 0000 Intake Total 150 0 Output Total 400 Balance -250 0 Intake, IV 150 Intake, Oral 0 Output, Urine 400 Patient 200 lb Weight Physical Exam: Constitutional: pleasant, no acute distress, conversant Eyes: sclera anicteric ENMT: ears and nose atraumatic, moist mucous membranes, good dentition, no lip lesions Neck: Supple, trachea is midline, no cervical or supraclavicular adenopathy and no palpable thyromegaly Cardiovascular: S1, S2, no murmurs, no peripheral edema Respiratory: clear to auscultation with normal respiratory effort and no intercostal retractions GI: abdomen firm guarding diffuse tenderness plus rebound nondistended, no palpable hepatosplenomegaly Extremities / lymphatics: symmetrically warm, free range of motion no peripheral edema, no cervical, supraclavicular, axillary, or inguinal adenopathy Musculoskeletal: Did not evaluate gait and station, no digital cyanosis, good muscle strength and tone no atrophy, motor grossly 5 out of 5 throughout Skin: no jaundice, no rashes warm, nondiaphoretic, no areas of erythema or induration Psychiatric: mood and affect are appropriate he is in severe pain has had analgesics, a little somnolent but otherwise and alert and oriented to person place and time Last 24 Hours of Labs: I rev Laboratory Tests 01/14 01/13 0630 2221 Chemistry Sodium (137 - 145 mmol/L) 138 Potassium (3.5 - 5.1 mmol/L) 4.8 Chloride (98 - 107 mmol/L) 103 Carbon Dioxide (22 - 30 mmol/L) 21 L Anion Gap (5 - 16) 14 BUN (9 - 20 mg/dL) 18 Creatinine (0.7 - 1.2 mg/dL) 0.9 Estimated GFR (>60 ml/min) > 60 BUN/Creatinine Ratio (7 - 25 %) 20.0 Lactic Acid Cancelled Hematology CBC w Diff MAN DIFF ORDERED WBC (4.8 - 10.8 /CUMM) Pending RBC (4.70 - 6.10 /CUMM) Pending Hgb (14.0 - 18.0 G/DL) Pending Hct (42 - 52 %) Pending MCV (80.0 - 94.0 FL) Pending MCH (27.0 - 31.0 PG) Pending MCHC (33.0 - 37.0 G/DL) Pending RDW (11.5 - 14.5 %) Pending Plt Count (130 - 400 /CUMM) Pending MPV (7.4 - 10.4 FL) Pending Gran % (42.2 - 75.2 %) Pending Lymphocytes % (20.5 - 51.1 %) Pending Monocytes % (1.7 - 9.3 %) Pending Eosinophils % (0 - 5 %) Pending Basophils % (0.0 - 2.0 %) Pending Absolute Granulocytes (1.4 - 6.5 /CUMM) Pending Segmented Neutrophils (42.2 - 75.2 %) Pending Absolute Lymphocytes (1.2 - 3.4 /CUMM) Pending Absolute Monocytes (0.10 - 0.60 /CUMM) Pending Absolute Eosinophils (0.0 - 0.7 /CUMM) Pending Absolute Basophils (0.0 - 0.2 /CUMM) Pending 01/13 1953 Chemistry Sodium (137 - 145 mmol/L) 137 Potassium (3.5 - 5.1 mmol/L) 4.5 Chloride (98 - 107 mmol/L) 101 Carbon Dioxide (22 - 30 mmol/L) 24 Anion Gap (5 - 16) 12 BUN (9 - 20 mg/dL) 12 Creatinine (0.7 - 1.2 mg/dL) 0.9 Estimated GFR (>60 ml/min) > 60 BUN/Creatinine Ratio (7 - 25 %) 13.3 Glucose (65 - 99 mg/dL) 140 H Lactic Acid (0.7 - 2.1 mmol/L) 1.0 Calcium (8.4 - 10.2 mg/dL) 9.4 Total Bilirubin (0.2 - 1.3 mg/dL) 1.1 AST (17 - 59 U/L) 17 ALT (21 - 72 U/L) 30 Alkaline Phosphatase (< 127 U/L) 78 Troponin I (<0.11 ng/ml) < 0.01 Total Protein (6.3 - 8.2 g/dL) 7.0 Albumin (3.5 - 5.0 g/dL) 4.1 Globulin (1.9 - 4.2 gm/dL) 2.9 Albumin/Globulin Ratio (1.1 - 2.2 %) 1.4 Lipase (23 - 300 U/L) 82 Hematology CBC w Diff NO MAN DIFF REQ WBC (4.8 - 10.8 /CUMM) 12.6 H RBC (4.70 - 6.10 /CUMM) 5.12 Hgb (14.0 - 18.0 G/DL) 16.3 Hct (42 - 52 %) 48.3 MCV (80.0 - 94.0 FL) 94.3 H MCH (27.0 - 31.0 PG) 31.9 H MCHC (33.0 - 37.0 G/DL) 33.8 RDW (11.5 - 14.5 %) 13.6 Plt Count (130 - 400 /CUMM) 296 MPV (7.4 - 10.4 FL) 7.5 Gran % (42.2 - 75.2 %) 71.3 Lymphocytes % (20.5 - 51.1 %) 22.0 Monocytes % (1.7 - 9.3 %) 5.6 Eosinophils % (0 - 5 %) 0.8 Basophils % (0.0 - 2.0 %) 0.3 Absolute Granulocytes (1.4 - 6.5 /CUMM) 9.0 H Absolute Lymphocytes (1.2 - 3.4 /CUMM) 2.8 Absolute Monocytes (0.10 - 0.60 /CUMM) 0.7 H Absolute Eosinophils (0.0 - 0.7 /CUMM) 0.1 Absolute Basophils (0.0 - 0.2 /CUMM) 0 Assessment/Plan Assessment/Plan to be completed I reviewed both CT scans on this admission on PACS myself earlier 1 though limited does show some ascites and free air some more central at the [place] repeat study obviously more free air and inflammatory changes and ascites. Impression Acute abdomen / peritonitis, presumably perf peptic ulcer given Hx and imaging, to OR now, exploration, trista patch, washout, Hartmans less likely. Discussed with family too. We also discussed the potential risks, benefits and alternatives to the procedure and surgery in general, issues that included but were not limited to, anesthetic risk, hemorrhage requiring transfusion, the risk of transfusion itself, infection, sepsis prolonged intubation recurrent intra-abdominal abscesses percutaneous drainage, heart attack, stroke, . I explained the importance of stopping smoking as it pertains to surgery, especially with general anesthesia and healing. Problem List: 1. Acute abdomen 2. Peritonitis 3. Perforated abdominal viscus 4. Back pain Consult Acknowledgment - Thank you for your consult request.
[2018-01-14 13:00] VITALS: BP 130/88
--- NOTE | 2018-01-14 14:13 | PN- Housestaff ---
Subjective Follow-up For: Acute abdomin, Air under diaphragm Complaints: pain scale (0-10) (Abdominal pain) Subjective: Patient was laying in bed sleepy. Unable to talk. According to attendent he complaining of pain in his back radiating to his abdomin, by scale of 8/10. CT scan showed air under daiphram. Patient is planned to shift to OR at 9am for laprotomy. Review of Systems Constitutional: Reports: see HPI. Objective Last 24 Hrs of Vital Signs/I&O Vital Signs Date Time Temp Pulse Resp B/P B/P Pulse O2 O2 Flow FiO2 Mean Ox Delivery Rate 01/14 1854 100.3 01/14 1600 Nasal 2.0L Cannula 01/14 1600 99.0 109 18 136/90 99 Nasal 2.0L Cannula 01/14 1446 96 Nasal 2.0L Cannula 01/14 1300 98.5 84 14 130/88 95 Nasal 2.0L Cannula 01/14 0800 Nasal 2.0L Cannula 01/14 0638 97.7 107 22 178/110 93 01/14 0631 98.8 140 24 190/100 92 01/14 0200 Nasal 2.0L Cannula 01/13 2300 98.1 74 18 132/86 90 01/13 2144 98.6 75 18 122/65 96 Room Air Intake & Output 01/14 1600 01/14 0800 01/14 0000 Intake Total 2988 150 0 Output Total 4400 400 Balance -1412 -250 0 Intake, IV 2988 150 Intake, Oral 0 Output, 4000 Emesis Output, Urine 400 400 Patient 195 lb 200 lb Weight Weight Bed scale Measurement Method Physical Exam General Appearance: Mild Distress Cardiovascular: Regular Rate, Normal S1, Normal S2 Lungs: Clear to Auscultation, Normal Air Movement Assessment/Plan Assessment: 52-year-old male with past medical history of hyperlipidemia presented to emergency department with acute onset of severe backache which was radiating toward abdomen. According to the patient attendent it was 7 /10. Problem list: Acute abdomen Plan: Patient's CT scan done which showed air under diaphragm. Patient preop done. Discussed with surgery team. They have shifted patient to OR for exploratory laparotomy. Patient shifted back to ICU. Problem List: 1. Acute abdomen 2. Perforated abdominal viscus Pain Ratin Pain Location: Abdomin Pain Goal: Remain pain free Pain Plan: Pain med Tomorrow's Labs & Rationales: cbc, lactate
--- NOTE | 2018-01-14 15:08 | PN- General Surgery ---
See Addendum Subjective Subjective: Post op check: Patient is resting, arousable but not communicative, family at bedside. No reports of post operative vomitting, ngt is in place. Objective Vital Signs and I&Os Vital Signs Date Time Temp Pulse Resp B/P B/P Pulse O2 O2 Flow FiO2 Mean Ox Delivery Rate 01/14 1446 96 Nasal 2.0L Cannula 01/14 1300 98.5 84 14 130/88 95 Nasal 2.0L Cannula 01/14 0800 Nasal 2.0L Cannula 01/14 0638 97.7 107 22 178/110 93 01/14 0631 98.8 140 24 190/100 92 01/14 0200 Nasal 2.0L Cannula 01/13 2300 98.1 74 18 132/86 90 01/13 2144 98.6 75 18 122/65 96 Room Air 01/13 1950 91 20 158/80 97 Room Air 01/13 1918 96 Room Air 01/13 1914 98.3 87 20 173/93 96 Room Air Intake & Output 01/14 1600 01/14 0801/14 0000 01/13 1600 01/13 0800 01/13 0000 Intake Total 2988 150 0 Output Total 4400 400 Balance -1412 -250 0 Intake, IV 2988 150 Intake, Oral 0 Output, 4000 Emesis Output, Urine 400 400 Patient 195 lb 200 lb Weight Weight Bed scale Measurement Method Physical Exam: General: Sleeping, arousable but not answering questions presently, no sign of distress Cardiac: RRR, 90s-100s, s1s2 Pulm: CTA, non-labored respiratory effort, nasal cannula 2L Abdomen: Non-distended, no guarding, dressing dry and intact Extremities: Neurovascular status grossly intact. Bilateral calves soft and non-tender Assessment/Plan Assessment/Plan This is a 52 year old male, POD 0, s/p exploratory laparotomy with repair of perforated viscus and trista patch. -NPO, ngt to low wall suction -DVT ppx: Hep sub q q8 hours, alps -GI ppx: IV protonix daily -Abx: Unasyn q6, Diflucan 200 daily(x2 additional doses) -Fluids: d5 1/2 NS at 125 per hour, may need NS bolus, monitor urine output -Strict I/O -Chest xray POD 1 Will discuss POC with Dr. Gonzalez Core Measures Venous Thromboembolism VTE Risk Factors Age>40 No Mechanical VTE Prophylaxis d/t N/A MechProphylax Ordered No VTE Pharm Prophylaxis d/t NA PharmProphylax ordered
[2018-01-14 16:00] VITALS: BP 136/90
[2018-01-14 19:38] LABS: ABSOLUTE BASOPHIL COUNT 0 /CUMM (0.0-0.2); ABSOLUTE EOSINOPHIL COUNT 0 /CUMM (0.0-0.7); ABSOLUTE GRANULOCYTE CT 18.7 /CUMM (1.4-6.5); ABSOLUTE LYMPH COUNT 1.1 /CUMM (1.2-3.4); ABSOLUTE MONOCYTE COUNT 0.8 /CUMM (0.10-0.60); BASOPHIL % 0.1 % (0.0-2.0); EOSINOPHIL % 0 % (0-5); GRANULOCYTE % 90.5 % (42.2-75.2); MEAN CORPUSCULAR HGB 31.9 PG (27.0-31.0); MEAN CORPUSCULAR HGB CONC 33.6 G/DL (33.0-37.0); MEAN CORPUSCULAR VOLUME 95.1 FL (80.0-94.0); MEAN PLATELET VOLUME 8.7 FL (7.4-10.4); PLATELET COUNT 290 /CUMM (130-400); RBC DISTRIBUTION WIDTH 13.7 % (11.5-14.5); WHITE BLOOD CELL COUNT 20.6 /CUMM (4.8-10.8)
[2018-01-14 19:45] LABS: HEMATOCRIT 52.3 % (42-52)
[2018-01-15] VITALS: BP 130/80
[2018-01-15 05:13] LABS: ABSOLUTE BASOPHIL COUNT 0 /CUMM (0.0-0.2); ABSOLUTE EOSINOPHIL COUNT 0 /CUMM (0.0-0.7); ABSOLUTE GRANULOCYTE CT 18.2 /CUMM (1.4-6.5); ABSOLUTE LYMPH COUNT 1.3 /CUMM (1.2-3.4); ABSOLUTE MONOCYTE COUNT 1.4 /CUMM (0.10-0.60); BASOPHIL % 0 % (0.0-2.0); EOSINOPHIL % 0 % (0-5); MEAN CORPUSCULAR HGB 31.8 PG (27.0-31.0); MEAN CORPUSCULAR HGB CONC 33.1 G/DL (33.0-37.0); MEAN PLATELET VOLUME 8.5 FL (7.4-10.4); PLATELET COUNT 273 /CUMM (130-400); RBC DISTRIBUTION WIDTH 13.9 % (11.5-14.5); RED BLOOD CELL CT 4.91 /CUMM (4.70-6.10)
[2018-01-15 05:18] LABS: HEMATOCRIT 47.2 % (42-52)
--- NOTE | 2018-01-15 05:39 | PN- General Surgery ---
Susanna Mcdonald 01/15/18 0537: Subjective Subjective: 52 y/o male is POD1 after exploratory Lap and repair of perforated duodenum ulcer. uneventful night, pain controlled, tachy to 120's but rate 80's this am. Temp thios am 98.9, lactate pending Review of Systems Constitutional: Reports: fever, weakness. Denies: chills. Cardiovascular: Denies: chest pain, orthopena, peripheral edema. Respiratory: Denies: cough, short of breath. Gastrointestinal: Reports: bloating, nausea. Genitourinary: Denies: no symptoms. Objective Vital Signs and I&Os Vital Signs Date Time Temp Pulse Resp B/P B/P Pulse O2 O2 Flow FiO2 Mean Ox Delivery Rate 01/15 0000 93 Nasal 3.0L Cannula 01/15 0000 100.6 95 18 130/80 93 Nasal 3.0L Cannula 01/14 2030 100.8 01/14 1854 100.3 01/14 1600 Nasal 2.0L Cannula 01/14 1600 99.0 109 18 136/90 99 Nasal 2.0L Cannula 01/14 1446 96 Nasal 2.0L Cannula 01/14 1300 98.5 84 14 130/88 95 Nasal 2.0L Cannula 01/14 0800 Nasal 2.0L Cannula 01/14 0638 97.7 107 22 178/110 93 / 0631 98.8 140 24 190/100 92 Intake & Output / 0800 08/03 0000 08/02 1600 08/02 0800 08/ 0000 / 1600 Intake Total 2988 150 0 Output Total 4400 400 Balance -1412 -250 0 Intake, IV 2988 150 Intake, Oral 0 Output, 4000 Emesis Output, Urine 400 400 Patient 195 lb 200 lb Weight Weight Bed scale Measurement Method Physical Exam: patient resting comfortably VSS tmax this am 98.9, 100.8 overnight chest- CTA symmetric Abd -soft with generalized discomfort faint BS this morning NG with 100cc overnight Heart -RRR without MRG bilateral lower extremities soft without edema Current Medications: Current Medications Sig/Alana Start time Last Medication Dose Route Stop Time Status Admin Acetaminophen 1,000 MG Q6P PRN 01/14 1200 AC 01/14 N/A 1 UNIT IV 1854 Acetaminophen 650 MG Q6P PRN 01/13 2230 DC PO Ampicillin Sodium/ 3,000 MG Q6 01/14 0735 AC 01/14 Sulbactam Sodium IV 2342 Sodium Chloride 100 ML Aspirin Buffered 81 MG DAILY 01/14 0900 CAN PO Atorvastatin Calcium 20 MG 1700 01/14 1700 CAN PO Cyclobenzaprine HCl 10 MG TID 01/13 2359 DC 01/13 PO 2344 Dextrose/Sodium 1,000 ML Q8H 01/14 1200 AC 01/15 Chloride IV 0110 Enoxaparin Sodium 40 MG DAILY 01/14 0900 CAN SC Fentanyl Citrate 100 MCG .STK-MED ONE 01/14 901 DC IM 01/14 09 Fluconazole 200 MG DAILY 01/15 09 AC Sodium Chloride 100 ML IV 01/16 0959 Fluconazole 200 MG ONCE ONE 01/14 1000 DC Sodium Chloride 100 ML IV 01/14 1059 Heparin Sodium 5,000 UNIT Q8 01/14 2200 AC 01/14 (Porcine) SC 2255 Hydromorphone HCl 1 MG Q4 HRS NEEDED PRN 01/14 0645 AC 01/15 IV 0308 Ketorolac 30 MG Q6P PRN 01/13 2345 DC 01/13 Tromethamine IV 01/18 2344 2344 Lidocaine 1 PAT DAILY 01/14 09 AC EXT Methylprednisolone 125 MG ONCE ONE 01/14 0445 CAN IV 01/14 0446 Midazolam HCl 2 MG .STK-MED ONE 01/14 901 DC IM 01/14 09 Nicotine 21 MG DAILY 01/14 09 AC TOP Pantoprazole Sodium 40 MG DAILY 01/14 1153 AC 01/14 IV 1352 Patient Medication 1 ED ONE ONE 01/14 1430 DC Teaching ED 01/14 1431 Phenol 2 SPRAY Q2P PRN 01/14 1700 AC 01/14 EXT 2255 Promethazine HCl 25 MG Q4P PRN 01/14 0745 AC 01/14 IV 01/21 0744 0749 Sodium Chloride 500 ML BOLUS ONE 01/14 2030 DC 01/14 IV 01/14 2129 2032 Sodium Chloride 500 ML BOLUS ONE 01/14 1915 DC 01/14 IV 01/14 2014 1930 Sodium Chloride 1,000 ML BOLUS ONE 01/14 0745 DC 01/14 IV 01/14 0844 0750 Sodium Chloride 1,000 ML ONCE ONE 01/14 0615 DC 01/14 IV 01/14 1254 0638 Sucralfate 1 GM Q8 01/14 2200 AC 01/14 PO 2252 Results Last 48 Hours of Labs: Laboratory Tests 01/15 01/14 0410 1840 Chemistry Sodium (137 - 145 mmol/L) 136 L Potassium (3.5 - 5.1 mmol/L) 4.2 Chloride (98 - 107 mmol/L) 107 Carbon Dioxide (22 - 30 mmol/L) 23 Anion Gap (5 - 16) 6 BUN (9 - 20 mg/dL) 19 Creatinine (0.7 - 1.2 mg/dL) 0.7 Estimated GFR (>60 ml/min) > 60 BUN/Creatinine Ratio (7 - 25 %) 27.1 H Lactic Acid Cancelled Phosphorus (2.5 - 4.5 mg/dL) 3.2 Magnesium (1.6 - 2.3 mg/dL) 1.7 Total Bilirubin (0.2 - 1.3 mg/dL) 1.1 Direct Bilirubin (< 0.4 mg/dL) 0.3 AST (17 - 59 U/L) 27 ALT (21 - 72 U/L) 29 Alkaline Phosphatase (< 127 U/L) 62 Total Protein (6.3 - 8.2 g/dL) 5.1 L Albumin (3.5 - 5.0 g/dL) 2.6 L Hematology CBC w Diff MAN DIFF ORDERED WBC (4.8 - 10.8 /CUMM) Pending RBC (4.70 - 6.10 /CUMM) Pending Hgb (14.0 - 18.0 G/DL) Pending Hct (42 - 52 %) Pending MCV (80.0 - 94.0 FL) Pending MCH (27.0 - 31.0 PG) Pending MCHC (33.0 - 37.0 G/DL) Pending RDW (11.5 - 14.5 %) Pending Plt Count (130 - 400 /CUMM) Pending MPV (7.4 - 10.4 FL) Pending Gran % (42.2 - 75.2 %) Pending Lymphocytes % (20.5 - 51.1 %) Pending Monocytes % (1.7 - 9.3 %) Pending Eosinophils % (0 - 5 %) Pending Basophils % (0.0 - 2.0 %) Pending Absolute Granulocytes (1.4 - 6.5 /CUMM) Pending Segmented Neutrophils (42.2 - 75.2 %) Pending Absolute Lymphocytes (1.2 - 3.4 /CUMM) Pending Absolute Monocytes (0.10 - 0.60 /CUMM) Pending Absolute Eosinophils (0.0 - 0.7 /CUMM) Pending Absolute Basophils (0.0 - 0.2 /CUMM) Pending 01/14 01/14 1753 UNK Chemistry Sodium (137 - 145 mmol/L) 136 L Potassium (3.5 - 5.1 mmol/L) 4.2 Chloride (98 - 107 mmol/L) 105 Carbon Dioxide (22 - 30 mmol/L) 22 Anion Gap (5 - 16) 8 BUN (9 - 20 mg/dL) 19 Creatinine (0.7 - 1.2 mg/dL) 0.8 Estimated GFR (>60 ml/min) > 60 BUN/Creatinine Ratio (7 - 25 %) 23.8 Lactic Acid (0.7 - 2.1 mmol/L) 2.3 H 2.3 H Phosphorus (2.5 - 4.5 mg/dL) 3.4 Magnesium (1.6 - 2.3 mg/dL) 1.6 Total Bilirubin (0.2 - 1.3 mg/dL) 1.8 H Direct Bilirubin (< 0.4 mg/dL) 0.4 AST (17 - 59 U/L) 24 ALT (21 - 72 U/L) 34 Alkaline Phosphatase (< 127 U/L) 50 Total Protein (6.3 - 8.2 g/dL) 5.4 L Albumin (3.5 - 5.0 g/dL) 2.8 L Hematology CBC w Diff NO MAN DIFF REQ WBC (4.8 - 10.8 /CUMM) 20.6 H RBC (4.70 - 6.10 /CUMM) 5.50 Hgb (14.0 - 18.0 G/DL) 17.6 Hct (42 - 52 %) 52.3 H MCV (80.0 - 94.0 FL) 95.1 H MCH (27.0 - 31.0 PG) 31.9 H MCHC (33.0 - 37.0 G/DL) 33.6 RDW (11.5 - 14.5 %) 13.7 Plt Count (130 - 400 /CUMM) 290 MPV (7.4 - 10.4 FL) 8.7 Gran % (42.2 - 75.2 %) 90.5 H Lymphocytes % (20.5 - 51.1 %) 5.5 L Monocytes % (1.7 - 9.3 %) 3.9 Eosinophils % (0 - 5 %) 0 Basophils % (0.0 - 2.0 %) 0.1 Absolute Granulocytes (1.4 - 6.5 /CUMM) 18.7 H Absolute Lymphocytes (1.2 - 3.4 /CUMM) 1.1 L Absolute Monocytes (0.10 - 0.60 /CUMM) 0.8 H Absolute Eosinophils (0.0 - 0.7 /CUMM) 0 Absolute Basophils (0.0 - 0.2 /CUMM) 0 01/14 01/13 0630 2221 Chemistry Sodium (137 - 145 mmol/L) 138 Potassium (3.5 - 5.1 mmol/L) 4.8 Chloride (98 - 107 mmol/L) 103 Carbon Dioxide (22 - 30 mmol/L) 21 L Anion Gap (5 - 16) 14 BUN (9 - 20 mg/dL) 18 Creatinine (0.7 - 1.2 mg/dL) 0.9 Estimated GFR (>60 ml/min) > 60 BUN/Creatinine Ratio (7 - 25 %) 20.0 Lactic Acid Cancelled Hematology CBC w Diff MAN DIFF ORDERED WBC (4.8 - 10.8 /CUMM) 21.7 H RBC (4.70 - 6.10 /CUMM) 6.10 Hgb (14.0 - 18.0 G/DL) 19.1 H Hct (42 - 52 %) 58.1 H MCV (80.0 - 94.0 FL) 95.3 H MCH (27.0 - 31.0 PG) 31.3 H MCHC (33.0 - 37.0 G/DL) 32.8 L RDW (11.5 - 14.5 %) 13.9 Plt Count (130 - 400 /CUMM) 296 MPV (7.4 - 10.4 FL) 8.3 Gran % (42.2 - 75.2 %) 93.4 H Lymphocytes % (20.5 - 51.1 %) 3.4 L Monocytes % (1.7 - 9.3 %) 3.2 Eosinophils % (0 - 5 %) 0 Basophils % (0.0 - 2.0 %) 0 Absolute Granulocytes (1.4 - 6.5 /CUMM) 20.2 H Segmented Neutrophils (42.2 - 75.2 %) 73 Band Neutrophils (0.0 - 5.0 %) 16 H Absolute Lymphocytes (1.2 - 3.4 /CUMM) 0.7 L Lymphocytes (20.5 - 51.1 %) 6 L Monocytes (1.7 - 9.3 %) 5 Absolute Monocytes (0.10 - 0.60 /CUMM) 0.7 H Absolute Eosinophils (0.0 - 0.7 /CUMM) 0 Absolute Basophils (0.0 - 0.2 /CUMM) 0 Platelet Estimate (ADEQUATE) VERIFIED BY SMEAR Normocytic RBCs VERIFIED Normochromic RBCs VERIFIED 01/13 Chemistry Sodium (137 - 145 mmol/L) 137 Potassium (3.5 - 5.1 mmol/L) 4.5 Chloride (98 - 107 mmol/L) 101 Carbon Dioxide (22 - 30 mmol/L) 24 Anion Gap (5 - 16) 12 BUN (9 - 20 mg/dL) 12 Creatinine (0.7 - 1.2 mg/dL) 0.9 Estimated GFR (>60 ml/min) > 60 BUN/Creatinine Ratio (7 - 25 %) 13.3 Glucose (65 - 99 mg/dL) 140 H Lactic Acid (0.7 - 2.1 mmol/L) 1.0 Calcium (8.4 - 10.2 mg/dL) 9.4 Total Bilirubin (0.2 - 1.3 mg/dL) 1.1 AST (17 - 59 U/L) 17 ALT (21 - 72 U/L) 30 Alkaline Phosphatase (< 127 U/L) 78 Troponin I (<0.11 ng/ml) < 0.01 Total Protein (6.3 - 8.2 g/dL) 7.0 Albumin (3.5 - 5.0 g/dL) 4.1 Globulin (1.9 - 4.2 gm/dL) 2.9 Albumin/Globulin Ratio (1.1 - 2.2 %) 1.4 Lipase (23 - 300 U/L) 82 Hematology CBC w Diff NO MAN DIFF REQ WBC (4.8 - 10.8 /CUMM) 12.6 H RBC (4.70 - 6.10 /CUMM) 5.12 Hgb (14.0 - 18.0 G/DL) 16.3 Hct (42 - 52 %) 48.3 MCV (80.0 - 94.0 FL) 94.3 H MCH (27.0 - 31.0 PG) 31.9 H MCHC (33.0 - 37.0 G/DL) 33.8 RDW (11.5 - 14.5 %) 13.6 Plt Count (130 - 400 /CUMM) 296 MPV (7.4 - 10.4 FL) 7.5 Gran % (42.2 - 75.2 %) 71.3 Lymphocytes % (20.5 - 51.1 %) 22.0 Monocytes % (1.7 - 9.3 %) 5.6 Eosinophils % (0 - 5 %) 0.8 Basophils % (0.0 - 2.0 %) 0.3 Absolute Granulocytes (1.4 - 6.5 /CUMM) 9.0 H Absolute Lymphocytes (1.2 - 3.4 /CUMM) 2.8 Absolute Monocytes (0.10 - 0.60 /CUMM) 0.7 H Absolute Eosinophils (0.0 - 0.7 /CUMM) 0.1 Absolute Basophils (0.0 - 0.2 /CUMM) 0 Urines Urine Color Cancelled Urine Clarity Cancelled Urine pH Cancelled Ur Specific [place] Cancelled Urine Protein Cancelled Urine Ketones Cancelled Urine Nitrite Cancelled Urine Bilirubin Cancelled Urine Urobilinogen Cancelled Ur Leukocyte Esterase Cancelled Ur Microscopic Cancelled Urine Hemoglobin Cancelled Urine Glucose Cancelled Recent Imaging Studies: CXR PENDING Assessment/Plan Assessment/Plan 52 year old male, POD 1, s/p exploratory laparotomy with repair of perforated viscus and trista patch. -NPO, ngt to low wall suction -faint BS heard this am, 100cc overnight continue to monitor -DVT ppx: Hep sub q q8 hours, alps -GI ppx: IV protonix daily and PO carafate -Abx: Unasyn q6, Diflucan 200 daily(x2 additional doses) -Fluids: d5 1/2 NS at 125 per hour, 2 500 boluses of NS given last night for lowe urine output, lactate pending this am -Strict I/O -Chest xray POD 1 Will discuss POC with Dr. Gonzalez Core Measures Venous Thromboembolism VTE Risk Factors Age>40 No Mechanical VTE Prophylaxis d/t N/A MechProphylax Ordered No VTE Pharm Prophylaxis d/t NA PharmProphylax ordered Carlos CROWE,Vick 01/17/187: Objective Vital Signs and I&Os Vital Signs Date Time Temp Pulse Resp B/P B/P Pulse O2 O2 Flow FiO2 Mean Ox Delivery Rate 01/18 1600 99.9 01/17 1200 95 Nasal 65% Cannula 01/17 0945 97.6 01/17 0809 101.4 01/17 08 91 Nasal 8L Cannula 01/17 0710 99.4 112 22 152/88 87 01/17 0657 88 Nasal 6.0L Cannula 01/17 06 99.4 112 24 152/88 90 Nasal 6.0L Cannula 01/17 0000 Nasal 3.0L Cannula 01/16 2121 98.8 103 24 138/92 92 Intake & Output 01/17 1600 01/17 0800 01/17 0000 01/16 1600 01/16 0801/16 0000 Intake Total 1083 777 850 3018 1234 Output Total 1350 600 440 955 900 660 Balance -267 100 -440 -12 170 574 Intake, IV 1083 198 756 5240 1204 Intake, Oral 0 10 30 Number 0 0 Bowel Movements Output, 150 100 240 280 300 100 Gastric Drainage Output, Urine 1200 500 200 675 600 560 Patient 204 lb 194 lb Weight Attending MD Review Statement Attending Statement Attending MD Statement: examined this patient, 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
--- NOTE | 2018-01-15 07:33 | RADIOLOGY REPORT ---
EXAMINATION: XR PORTABLE CHEST CLINICAL INFORMATION: Shortness of breath status post surgery COMPARISON: CTA chest 01/13/2018 TECHNIQUE: Portable frontal view of the chest was obtained. FINDINGS: Enteric tube is visualized extending beyond the level of the diaphragm and over the expected location of the stomach. Low lung volumes. Bibasilar airspace disease with likely small effusions. No pneumothorax. Evaluation of the upper abdomen is suboptimal. IMPRESSION: Bibasilar airspace disease. This may represent atelectasis and small effusions, however, developing infiltrates cannot be excluded.
[2018-01-15 08:00] VITALS: BP 122/80
[2018-01-15 12:00] VITALS: BP 130/84
--- NOTE | 2018-01-15 15:16 | RADIOLOGY REPORT ---
EXAMINATION: XR CHEST CLINICAL INFORMATION: Desaturation. Concern for infiltrate on portable chest radiograph performed earlier today COMPARISON: Chest x-ray 01/15/2018, 5:55 AM TECHNIQUE: 2 views of the chest were obtained. 2:41 PM FINDINGS: Lung volumes remains low. There is density again seen at both lung bases similar to the portable chest x-ray performed earlier today. Left diaphragm remains silhouetted. This is due to an effusion blunting the posterior costophrenic angle and airspace disease at the posterior left lung base of infiltrate/atelectasis. There is a right pleural effusion as well blunting the posterior costophrenic angle. There is probable small infiltrate and/or atelectasis of the right lung base. The central hilar vessels are mildly prominent but this is accentuated by the low inspiratory effort. There is a nasogastric tube the tube coursing into the stomach. IMPRESSION: 1. Low lung volume. 2. Bibasilar density, greater on the left and right, due to bilateral pleural effusions and bibasilar infiltrate/atelectasis.
[2018-01-15 16:00] VITALS: BP 130/88
[2018-01-15 20:00] VITALS: BP 138/72
[2018-01-16] VITALS: BP 146/88
--- NOTE | 2018-01-16 04:56 | PN- General Surgery ---
See Addendum Subjective Subjective: Patient seen and evaluated, No events overnight CV: Tachy overnight to low 100s. Asymptomatic Pulm: Satturation in low 90s on 3L NC. Encouarged IS and pulmonary toilet. Suspect with improve with oob activity Neuro: Has some lower abdomen pain but is controlled with current meds GI: NGT with 100mL so far overnight. Patient states possibly some rare flatus, no BM. Renal/: UOP >700mL overnight with 80/45/90mL in past [address]. Likely dc later today.' ID: Afebrile, on Unasyn and diflucan, coughing up puerulent sputum yesterday and sputum culture was sent Endo: no active issues Ortho: Was oob to chair yesterday Objective Vital Signs and I&Os Vital Signs Date Time Temp Pulse Resp B/P B/P Pulse O2 O2 Flow FiO2 Mean Ox Delivery Rate 01/16 0000 98.0 106 24 146/88 94 Nasal 3.0L Cannula 01/16 0000 94 Nasal 3.0L Cannula 01/16 2000 Nasal 3.0L Cannula 01/16 2000 98.4 102 26 138/72 95 Nasal 3.0L Cannula 01/15 1847 Nasal 3.0L Cannula 01/15 1600 95 Nasal 3.0L Cannula 01/15 1600 98.4 98 21 130/88 95 Nasal 3.0L Cannula 01/15 1325 99.4 / 1200 94 Nasal 3.0L Cannula 01/15 1200 98.3 90 20 130/84 94 Nasal 3.0L Cannula 01/15 0807 99.1 01/15 0800 98.5 87 26 122/80 93 Nasal 3.0L Cannula 01/15 0800 93 Nasal 3.0L Cannula Intake & Output 01/16 0800 / 0000 01/15 1600 01/15 0800 01/15 0000 01/14 1600 Intake Total 1234 1394 787 4638 2988 Output Total 660 600 818 578 2704 Balance 574 087 524 4971 -1412 Intake, IV 1204 1273 1752 2988 Intake, Oral 30 Intake, Other 978 Number 0 Bowel Movements Output, 4000 Emesis Output, 100 200 100 Gastric Drainage Output, Urine 560 400 487 305 400 Patient 194 lb 195 lb Weight Weight Bed scale Bed scale Measurement Method Physical Exam: General: sleeping upon arrival, NAD CV: tachy, no murmers Pulm: good respiratoy effort, CTA in anterior/lateral capps HEENT: NC in place on 3L, NGT in place on wall suction with green/brown discharge Abdomen: midline surgical wound dressing is c/d/i, moderatly tender to palpation in lower quadrants, bowel sounds present, no guarding/distention/rigidity Ext: Athrombics in place, no calf tenderness, no edema Current Medications: Current Medications Sig/Alana Start time Last Medication Dose Route Stop Time Status Admin Acetaminophen 1,000 MG Q6P PRN 01/14 1200 AC 01/16 N/A 1 UNIT IV 0236 Ampicillin Sodium/ 3,000 MG Q6 01/14 0735 AC 01/16 Sulbactam Sodium IV 0027 Sodium Chloride 100 ML Dextrose/Sodium 1,000 ML Q8H 01/14 1200 AC 01/15 Chloride IV 1942 Fluconazole 200 MG DAILY 01/15 0900 AC 01/15 Sodium Chloride 100 ML IV 01/16 0959 0909 Heparin Sodium 5,000 UNIT Q8 01/14 2200 AC 01/15 (Porcine) SC 2116 Hydromorphone HCl 0.5 MG Q4P PRN 01/15 0615 AC 01/16 IV 0000 Hydromorphone HCl 1 MG Q4 HRS NEEDED PRN 01/14 0645 AC 01/15 IV 0308 Lidocaine 1 PAT DAILY 01/14 0900 AC EXT Magnesium Sulfate 1 GM ONCE ONE 01/15 1215 DC 01/15 Dextrose/Water 100 ML IV 01/15 1614 1326 Nicotine 21 MG DAILY 01/14 0900 AC 01/15 TOP 0909 Pantoprazole Sodium 40 MG DAILY 01/14 1153 AC 01/15 IV 0909 Phenol 2 SPRAY Q2P PRN 01/14 1700 AC 01/14 EXT 2255 Promethazine HCl 25 MG Q4P PRN 01/14 0745 AC 01/14 IV 01/21 0744 0749 Sucralfate 1 GM Q8 01/14 2200 AC 01/15 PO 2117 Results Last 48 Hours of Labs: Laboratory Tests 01/15 01/15 01/15 UNK 0410 0410 Chemistry Sodium (137 - 145 mmol/L) Cancelled 136 L Potassium (3.5 - 5.1 mmol/L) Cancelled 4.2 Chloride (98 - 107 mmol/L) Cancelled 107 Carbon Dioxide (22 - 30 mmol/L) Cancelled 23 Anion Gap (5 - 16) Cancelled 6 BUN (9 - 20 mg/dL) Cancelled 19 Creatinine (0.7 - 1.2 mg/dL) Cancelled 0.7 Estimated GFR (>60 ml/min) > 60 BUN/Creatinine Ratio (7 - 25 %) 27.1 H Glucose Cancelled Lactic Acid (0.7 - 2.1 mmol/L) 1.7 Calcium Cancelled Phosphorus (2.5 - 4.5 mg/dL) Cancelled 3.2 Magnesium (1.6 - 2.3 mg/dL) Cancelled 1.7 Total Bilirubin (0.2 - 1.3 mg/dL) Cancelled 1.1 Direct Bilirubin (< 0.4 mg/dL) 0.3 AST (17 - 59 U/L) Cancelled 27 ALT (21 - 72 U/L) Cancelled 29 Alkaline Phosphatase (< 127 U/L) 62 Total Protein (6.3 - 8.2 g/dL) 5.1 L Albumin (3.5 - 5.0 g/dL) Cancelled 2.6 L Hematology CBC w Diff MAN DIFF ORDERED WBC (4.8 - 10.8 /CUMM) 21.0 H RBC (4.70 - 6.10 /CUMM) 4.91 Hgb (14.0 - 18.0 G/DL) 15.6 Hct (42 - 52 %) 47.2 MCV (80.0 - 94.0 FL) 96.0 H MCH (27.0 - 31.0 PG) 31.8 H MCHC (33.0 - 37.0 G/DL) 33.1 RDW (11.5 - 14.5 %) 13.9 Plt Count (130 - 400 /CUMM) 273 MPV (7.4 - 10.4 FL) 8.5 Gran % (42.2 - 75.2 %) 87.0 H Lymphocytes % (20.5 - 51.1 %) 6.2 L Monocytes % (1.7 - 9.3 %) 6.8 Eosinophils % (0 - 5 %) 0 Basophils % (0.0 - 2.0 %) 0 Absolute Granulocytes (1.4 - 6.5 /CUMM) 18.2 H Segmented Neutrophils (42.2 - 75.2 %) 77 H Band Neutrophils (0.0 - 5.0 %) 7 H Absolute Lymphocytes (1.2 - 3.4 /CUMM) 1.3 Lymphocytes (20.5 - 51.1 %) 10 L Monocytes (1.7 - 9.3 %) 6 Absolute Monocytes (0.10 - 0.60 /CUMM) 1.4 H Absolute Eosinophils (0.0 - 0.7 /CUMM) 0 Absolute Basophils (0.0 - 0.2 /CUMM) 0 Platelet Estimate (ADEQUATE) ADEQUATE Polychromasia 1+ Ovalocytes FEW Other Body Source Fld Total RBCs Counted (%) 100 01/14 01/14 01/14 1840 1753 UNK Chemistry Sodium (137 - 145 mmol/L) 136 L Potassium (3.5 - 5.1 mmol/L) 4.2 Chloride (98 - 107 mmol/L) 105 Carbon Dioxide (22 - 30 mmol/L) 22 Anion Gap (5 - 16) 8 BUN (9 - 20 mg/dL) 19 Creatinine (0.7 - 1.2 mg/dL) 0.8 Estimated GFR (>60 ml/min) > 60 BUN/Creatinine Ratio (7 - 25 %) 23.8 Lactic Acid (0.7 - 2.1 mmol/L) Cancelled 2.3 H 2.3 H Phosphorus (2.5 - 4.5 mg/dL) 3.4 Magnesium (1.6 - 2.3 mg/dL) 1.6 Total Bilirubin (0.2 - 1.3 mg/dL) 1.8 H Direct Bilirubin (< 0.4 mg/dL) 0.4 AST (17 - 59 U/L) 24 ALT (21 - 72 U/L) 34 Alkaline Phosphatase (< 127 U/L) 50 Total Protein (6.3 - 8.2 g/dL) 5.4 L Albumin (3.5 - 5.0 g/dL) 2.8 L Hematology CBC w Diff NO MAN DIFF REQ WBC (4.8 - 10.8 /CUMM) 20.6 H RBC (4.70 - 6.10 /CUMM) 5.50 Hgb (14.0 - 18.0 G/DL) 17.6 Hct (42 - 52 %) 52.3 H MCV (80.0 - 94.0 FL) 95.1 H MCH (27.0 - 31.0 PG) 31.9 H MCHC (33.0 - 37.0 G/DL) 33.6 RDW (11.5 - 14.5 %) 13.7 Plt Count (130 - 400 /CUMM) 290 MPV (7.4 - 10.4 FL) 8.7 Gran % (42.2 - 75.2 %) 90.5 H Lymphocytes % (20.5 - 51.1 %) 5.5 L Monocytes % (1.7 - 9.3 %) 3.9 Eosinophils % (0 - 5 %) 0 Basophils % (0.0 - 2.0 %) 0.1 Absolute Granulocytes (1.4 - 6.5 /CUMM) 18.7 H Absolute Lymphocytes (1.2 - 3.4 /CUMM) 1.1 L Absolute Monocytes (0.10 - 0.60 /CUMM) 0.8 H Absolute Eosinophils (0.0 - 0.7 /CUMM) 0 Absolute Basophils (0.0 - 0.2 /CUMM) 0 08/02 0630 Chemistry Sodium (137 - 145 mmol/L) 138 Potassium (3.5 - 5.1 mmol/L) 4.8 Chloride (98 - 107 mmol/L) 103 Carbon Dioxide (22 - 30 mmol/L) 21 L Anion Gap (5 - 16) 14 BUN (9 - 20 mg/dL) 18 Creatinine (0.7 - 1.2 mg/dL) 0.9 Estimated GFR (>60 ml/min) > 60 BUN/Creatinine Ratio (7 - 25 %) 20.0 Hematology CBC w Diff MAN DIFF ORDERED WBC (4.8 - 10.8 /CUMM) 21.7 H RBC (4.70 - 6.10 /CUMM) 6.10 Hgb (14.0 - 18.0 G/DL) 19.1 H Hct (42 - 52 %) 58.1 H MCV (80.0 - 94.0 FL) 95.3 H MCH (27.0 - 31.0 PG) 31.3 H MCHC (33.0 - 37.0 G/DL) 32.8 L RDW (11.5 - 14.5 %) 13.9 Plt Count (130 - 400 /CUMM) 296 MPV (7.4 - 10.4 FL) 8.3 Gran % (42.2 - 75.2 %) 93.4 H Lymphocytes % (20.5 - 51.1 %) 3.4 L Monocytes % (1.7 - 9.3 %) 3.2 Eosinophils % (0 - 5 %) 0 Basophils % (0.0 - 2.0 %) 0 Absolute Granulocytes (1.4 - 6.5 /CUMM) 20.2 H Segmented Neutrophils (42.2 - 75.2 %) 73 Band Neutrophils (0.0 - 5.0 %) 16 H Absolute Lymphocytes (1.2 - 3.4 /CUMM) 0.7 L Lymphocytes (20.5 - 51.1 %) 6 L Monocytes (1.7 - 9.3 %) 5 Absolute Monocytes (0.10 - 0.60 /CUMM) 0.7 H Absolute Eosinophils (0.0 - 0.7 /CUMM) 0 Absolute Basophils (0.0 - 0.2 /CUMM) 0 Platelet Estimate (ADEQUATE) VERIFIED BY SMEAR Normocytic RBCs VERIFIED Normochromic RBCs VERIFIED Assessment/Plan Assessment/Plan This is a 52 year old male w/ PMH of HLD, POD 2, s/p exploratory laparotomy with repair of perforated viscus and trista patch from dudenal ulcer. CV: Continue registered nurse cardiac, monitor vitals per ICU protocol, holding home ASA and statin Pulm: Continue aggressive pulm toilet, kadi , sputum cultures Neuro: Continue IV tylenol/dilaudid 0.5/1mg for moderate/sever pain GI: Continue NGT to LCWS, monitor for bowel function return, antiemetics, IV protonix daily and PO carafate Renal/: strict I&Os, conttinue IVFs while NPO and with NGT losses, Montelongo can likely be dc later today, fu kidney function labs Heme: sc heparin, athrombics, fu labs this AM ID: Continue Unasyn and diflucan, fu sputum cx, trend WBC (yesterday WBC 21), consider ID consult Ortho: Encourage oob to chair with assistance Disposition: Likely stable for transfer out of ICU today. Will discuss with Dr. Hernandez. Core Measures Venous Thromboembolism VTE Risk Factors Age>40 No Mechanical VTE Prophylaxis d/t N/A MechProphylax Ordered No VTE Pharm Prophylaxis d/t NA PharmProphylax ordered
[2018-01-16 05:40] LABS: ABSOLUTE BASOPHIL COUNT 0 /CUMM (0.0-0.2); ABSOLUTE MONOCYTE COUNT 0.8 /CUMM (0.10-0.60); BASOPHIL % 0.2 % (0.0-2.0); EOSINOPHIL % 0.3 % (0-5)
[2018-01-16 05:43] LABS: ABSOLUTE EOSINOPHIL COUNT 0.1 /CUMM (0.0-0.7); ABSOLUTE LYMPH COUNT 2.1 /CUMM (1.2-3.4); GRANULOCYTE % 81.7 % (42.2-75.2); MEAN CORPUSCULAR HGB 31.9 PG (27.0-31.0); MEAN CORPUSCULAR HGB CONC 33.3 G/DL (33.0-37.0); MEAN CORPUSCULAR VOLUME 95.8 FL (80.0-94.0); PLATELET COUNT 251 /CUMM (130-400); RBC DISTRIBUTION WIDTH 13.9 % (11.5-14.5); RED BLOOD CELL CT 4.36 /CUMM (4.70-6.10); WHITE BLOOD CELL COUNT 15.9 /CUMM (4.8-10.8)
[2018-01-16 05:44] LABS: HEMATOCRIT 41.8 % (42-52)
[2018-01-16 08:00] VITALS: BP 122/80
--- NOTE | 2018-01-16 10:32 | Operative Report ---
Operative/Inv Procedure Report Surgery Date: 01/14/18 Name of Procedure: Exploratory laparotomy Fernando patch closure of perforated peptic ulcer and abdominal washout Pre-Operative Diagnosis: Peritonitis acute abdomen perforated viscus Post-Operative Diagnosis: Same, perforated peptic (pyloric) ulcer Estimated Blood Loss: scant Surgeon/Manager Costing: Carlos CROWE,Vick LIND Anesthesia: general endotracheal tube Operative/Procedure Note Note: Patient was positioned supine, after successful induction of general anesthesia and timeouts and IV antibiotics, the abdomen was clipped prepped and draped in the usual sterile fashion, a hands breadth vertical midline incision was planned in the epigastrium then first infiltrated with local anesthetic then made the incision with a 10 blade, deepened it with cautery you could see the bulging peritoneum from the free air, there was a lot of bilious turbid free fluid with some fibrinous peel as well that we aspirated and irrigated and all 4 quadrants throughout the procedure there was an obvious anterior perforation in the region of the duodenal bulb, which seemed a little tortuous and thickened close to the pylorus, it was about 1 cm was about wide, patient had a robust omentum and we were able to gently swing some up there to cover this hole and we stiuffed a small but vascular tongue of omentum overlying / into the hole with 2 separate 2 -0 Vicryl sutures. After this we continued to aspirate and irrigate, confirm placement of NG tube, then we closed in layers first using 0 Maxon continuous for the fascia followed by a few interrupted Vicryls subdermally followed by diego for skin followed by an island dressing. Estimated blood loss minimal lap and sponge counts correct wound expectancy was contaminated IV fluids crystalloid complications none patient tolerated the procedure well was awakened extubated and returned to the recovery room in satisfactory condition
[2018-01-16 16:00] VITALS: BP 112/76
[2018-01-16 21:21] VITALS: BP 138/92
[2018-01-17 06:26] VITALS: BP 152/88
[2018-01-17 07:10] VITALS: BP 152/88
--- NOTE | 2018-01-17 07:32 | PN- General Surgery ---
See Addendum Subjective Subjective: o2 sat dropped this am to mid-80s on 3L (on 3L overnight without issues), pt feels sob, tachypnic, diaphoretic. has been oob, wearing alps, getting hepsq. some abd pain, passed some flatus. throat bothered by ngt. no n/v. overall not feeling well. tearful at bedside as pt "looks so bad" Objective Vital Signs and I&Os Vital Signs Date Time Temp Pulse Resp B/P B/P Pulse O2 O2 Flow FiO2 Mean Ox Delivery Rate 01/17 710 99.4 112 22 152/88 87 01/17 0657 88 Nasal 6.0L Cannula 01/17 06 99.4 112 24 152/88 90 Nasal 6.0L Cannula 01/17 0000 Nasal 3.0L Cannula 01/16 2121 98.8 103 24 138/92 92 01/16 1600 95 Nasal 3.0L Cannula 01/16 1600 98.4 108 22 112/76 95 Nasal 3.0L Cannula 01/16 0800 98.9 98 20 122/80 97 Nasal 3.0L Cannula 01/16 0800 95 Nasal 3.0L Cannula Intake & Output 01/17 08 08/ 0000 01/16 1600 01/16 0800 / 0000 01/15 1600 Intake Total 943 1070 1234 1273 Output Total 440 955 900 660 600 Balance -440 -12 170 574 673 Intake, IV 933 1070 1204 1273 Intake, Oral 10 30 Number 0 Bowel Movements Output, 240 280 300 100 200 Gastric Drainage Output, Urine 200 675 600 560 400 Patient 204 lb 194 lb Weight Physical Exam: gen- heavy breathing, diaphoretic, visibly uncomfortable card- s1s2 tachy to 110s pulm- some crackles post bases, tachypnic abd- soft, distended, ttp at incision- staple line cdi ext- calves soft nt, alps on. ngt: 100 yellow bilious overnight uo- 500cc via straight cath at 5:30am Results Last 48 Hours of Labs: Laboratory Tests 01/17 01/16 01/15 0616 0515 UNK Chemistry Sodium (137 - 145 mmol/L) Pending 135 L Cancelled Potassium (3.5 - 5.1 mmol/L) Pending 3.6 Cancelled Chloride (98 - 107 mmol/L) Pending 105 Cancelled Carbon Dioxide (22 - 30 mmol/L) Pending 24 Cancelled Anion Gap (5 - 16) Pending 7 Cancelled BUN (9 - 20 mg/dL) Pending 12 Cancelled Creatinine (0.7 - 1.2 mg/dL) Pending 0.6 L Cancelled Estimated GFR (>60 ml/min) > 60 BUN/Creatinine Ratio (7 - 25 %) Pending 20.0 Glucose Cancelled Calcium Cancelled Phosphorus Cancelled Magnesium Pending Cancelled Total Bilirubin Cancelled AST Cancelled ALT Cancelled Albumin Cancelled Hematology CBC w Diff Pending NO MAN DIFF REQ WBC (4.8 - 10.8 /CUMM) Pending 15.9 H RBC (4.70 - 6.10 /CUMM) Pending 4.36 L Hgb (14.0 - 18.0 G/DL) Pending 13.9 L Hct (42 - 52 %) Pending 41.8 L MCV (80.0 - 94.0 FL) Pending 95.8 H MCH (27.0 - 31.0 PG) Pending 31.9 H MCHC (33.0 - 37.0 G/DL) Pending 33.3 RDW (11.5 - 14.5 %) Pending 13.9 Plt Count (130 - 400 /CUMM) Pending 251 MPV (7.4 - 10.4 FL) Pending 8.0 Gran % (42.2 - 75.2 %) 81.7 H Lymphocytes % (20.5 - 51.1 %) 12.9 L Monocytes % (1.7 - 9.3 %) 4.9 Eosinophils % (0 - 5 %) 0.3 Basophils % (0.0 - 2.0 %) 0.2 Absolute Granulocytes (1.4 - 6.5 /CUMM) 13.0 H Absolute Lymphocytes (1.2 - 3.4 /CUMM) 2.1 Absolute Monocytes (0.10 - 0.60 /CUMM) 0.8 H Absolute Eosinophils (0.0 - 0.7 /CUMM) 0.1 Absolute Basophils (0.0 - 0.2 /CUMM) 0 Assessment/Plan Assessment/Plan A- POD3 sp ex lap/trista patch for perf duo ulcer, now diaphoretic, tachypnic, tachycardic, with sudden worsening hypoxia, currently 91% on 8L NC. High suspicion for PE vs worsening aspriration pna. P- CTA stat ekg, labs, abg tele monitoring ?sean duffy likely for i&os, retention trc. increase o2 per demands cont ngt, npo, ivf Dr. Nieto aware. Core Measures Venous Thromboembolism VTE Risk Factors Age>40 No Mechanical VTE Prophylaxis d/t N/A MechProphylax Ordered No VTE Pharm Prophylaxis d/t NA PharmProphylax ordered
[2018-01-17 07:47] LABS: ABSOLUTE BASOPHIL COUNT 0 /CUMM (0.0-0.2); ABSOLUTE EOSINOPHIL COUNT 0 /CUMM (0.0-0.7); ABSOLUTE GRANULOCYTE CT 15.6 /CUMM (1.4-6.5); ABSOLUTE LYMPH COUNT 1.3 /CUMM (1.2-3.4); ABSOLUTE MONOCYTE COUNT 1.2 /CUMM (0.10-0.60); BASOPHIL % 0 % (0.0-2.0); EOSINOPHIL % 0.2 % (0-5); GRANULOCYTE % 86.2 % (42.2-75.2); HEMATOCRIT 41.8 % (42-52); MEAN CORPUSCULAR HGB 31.8 PG (27.0-31.0); MEAN CORPUSCULAR HGB CONC 33.5 G/DL (33.0-37.0); MEAN CORPUSCULAR VOLUME 94.8 FL (80.0-94.0); MEAN PLATELET VOLUME 8.4 FL (7.4-10.4); PLATELET COUNT 274 /CUMM (130-400); RBC DISTRIBUTION WIDTH 14.4 % (11.5-14.5)
--- NOTE | 2018-01-17 09:21 | CT SCAN REPORT ---
EXAMINATION: CTA CHEST WITHOUT AND WITH CONTRAST (PE STUDY) CLINICAL INFORMATION: Hypoxia, tachypnea, postop. COMPARISON: January 14, 2018 TECHNIQUE: Prior to contrast administration localization images were obtained. After the administration of 95 mL of intravenous [id number], Multidetector helical CT images were obtained through the thorax. Reformatted images in the coronal and sagittal planes were obtained at the acquisition workstation. Postprocessing was performed. Maximum intensity projections were developed. Multiplanar reformatting. DLP: 447.64 mGy-cm. FINDINGS: The bolus timing on this study was not acceptable for visualization of the pulmonary arterial tree. Coronary artery and was cannot be excluded on this study however there is significant other disease present which would explain patient's symptoms. There is diffuse interstitial and airspace disease seen bilaterally with scattered areas of groundglass opacity and central peribronchial wall thickening. There is bilateral airspace disease with air bronchograms with overall findings consistent with atelectatic change and pulmonary edema of cardiogenic or noncardiogenic etiology. No thoracic aortic aneurysm. No thoracic aortic dissection. No intraventricular septal bowing to the left. The heart is normal in size. There is mediastinal lymphadenopathy seen in the AP window and precarinal regions. No pericardial effusion. Nasal gastric tube seen traversing to stomach. Upper Abdomen: Ascites is present. No adrenal gland mass. Large upper pole renal cyst. There is a small nondependent bubble of gas seen adjacent to the left lobe of liver as free intra-abdominal air. Osseous structures: No destructive bony lesions identified. IMPRESSION: Inadequate study to assess for pulmonary artery embolus. No evidence of thoracic aortic aneurysm or dissection. Findings consistent with pulmonary edema of cardiogenic or noncardiogenic etiology. Bilateral dependent consolidated lung with air bronchograms. Moderate size bilateral pleural effusions. Ascites with single locule of free air identified within the upper abdomen..
--- NOTE | 2018-01-17 10:16 | Cons- CRCU ---
Luciana Babin MD 01/17/18 1015: General Information and HPI Consulting Request Date of Consult: 01/17/18 Requested By: Reason for Consult: Postoperative pneumonia requiring high flow Source of Information: patient, old records Exam Limitations: no limitations History of Present Illness: Patient is a 52-year-old gentleman with a PMH significant for HLD who presented to the hospital for evaluation of acute intractable back pain. At initial presentation history was primarily obtained by his who is at the bedside. She mentioned that he was reversing his car when he suddenly turned his neck to the right to look back he developed shooting pain involving his shoulders, trapezius and mid back radiating to his mid abdomen bilaterally. Patient's states that he has been complaining of pain over his scapula and trapezius over the past 1-2 days. 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 He was found to have duodenal perforation on repeat imaging and transitioned to surgical serive. He was operated on 01/14/2018 indicating with expiratory laparotomy with Fernando patch placement for perforated peptic ulcer along with abdominal washout. He remained on NG tube, nothing by mouth ever since. He was placed in ICU pre&post - operatively. He was mildly tachycardia and found to have basilar opacities on chest x-ray on January 15. He was started on Unasyn 3 g every 6 postoperatively and continue till to date. On 01/17/2018 - he spiked a fever of 101.4, oxygen requirement increased from 3 to 8 L overnight, the decision was made to transfer the patient to ICU and get a CRC consult in view of his decompensation postoperatively. In regard to his postoperative course he is still nothing by mouth with NG suction in place. Patient is minimally responsive and at bedside. Allergies/Medications Allergies: Coded Allergies: No Known Allergies (08/19/17) Home Med List: Albuterol Sulfate 2.5 MG/3 ML (0.083 %) VIAL.NEB 3 ML INH BID TRC Aspirin (Ecotrin*) 81 MG TABLET. 1 TAB PO PRN HEART/BLOOD (Reported) Atorvastatin Calcium 20 MG TABLET 1 TAB PO DAILY CHOLESTEROL (Reported) Ceftazidime 1 GRAM VIAL 1,000 MG IV Q8H POST OP Chloraseptic (Phenaseptic) 1.4 % SPRAY 2 SPRAY EXT Q2P PRN PAIN Heparin Sodium,Porcine (Heparin Sodium) 5,000 UNIT/ML VIAL 5,000 UNIT SC Q8 DVT PROPHYLAXSIS Hydromorphone (Hydromorphone HCl 2 MG/Ml Amp) 2 MG/ML AMPUL 1 MG IV Q4 HRS NEEDED PRN PAIN 9-10 Hydromorphone (Hydromorphone HCl 2 MG/Ml Amp) 2 MG/ML AMPUL 0.5 MG IV Q4P PRN PAIN SCALE 4-6 (MODERATE) Lidocaine (Lidoderm) 5 % ADH..PATCH 1 PAT EXT DAILY pain Nicotine (Nicotine Patch) 21 MG/24 HOUR PATCH.TD24 1 PATCH TOP DAILY SMOKER Pantoprazole Sodium 40 MG VIAL 1 VIAL IV DAILY GI prophylaxsis Potassium Chloride/D5-0.45NACL (D5%-1/2NS-KCl 10 Meq/L IV Viktoriya) 10 MEQ/L IV.SOLN 1 BAG IV CONTINOUS FLUIDS @125ML/H Promethazine HCl 25 MG/ML AMPUL 25 MG IV Q4P PRN NAUSEA/VOMITING Sucralfate 1 GRAM/10 ML ORAL.SUSP 1 GM PO Q8 GI Vancomycin HCl in Dextrose 5 % (Vancomycin 1.5 Gram/250 Ml-D5w) 1.5 GRAM/250 ML PLAST..BAG 1 BAG IV DAILY POST OP Current Medications: Current Medications Sig/Alana Start time Last Medication Dose Route Stop Time Status Admin Acetaminophen 1,000 MG .STK-MED ONE 01/17 2000 DC IV 01/16 2001 Acetaminophen 1,000 MG Q6P PRN 01/14 1200 AC 01/17 N/A 1 UNIT IV 0809 Ampicillin Sodium/ 3,000 MG Q6 01/14 0735 DC 01/17 Sulbactam Sodium IV 0529 Sodium Chloride 100 ML Ceftazidime 1,000 MG IQ8 01/17 1600 DC IV Ceftazidime 1,000 MG Q8H 01/17 1100 AC 01/17 IV 1108 Furosemide 20 MG ONCE ONE 01/17 0945 DC 01/17 IV 01/17 0946 0950 Heparin Sodium 5,000 UNIT Q8 01/14 2200 AC 01/17 (Porcine) SC 0529 Hydromorphone HCl 0.5 MG Q4P PRN 01/15 0615 AC 01/17 IV 0851 Hydromorphone HCl 1 MG Q4 HRS NEEDED PRN 01/14 0645 AC 01/17 IV 1157 Lidocaine 1 PAT DAILY 01/14 0900 AC 01/17 EXT 1006 Nicotine 21 MG DAILY 01/14 0900 AC 01/17 TOP 1003 Pantoprazole Sodium 40 MG DAILY 01/14 1153 AC 01/17 IV 1003 Phenol 2 SPRAY Q2P PRN 01/14 1700 AC 01/16 EXT 1717 Potassium Chloride 20 MEQ Q20H 01/17 1045 AC Dextrose/Sodium 1,000 ML IV Chloride Potassium Chloride 20 MEQ Q10H 01/16 1000 DC 01/17 Dextrose/Sodium 1,000 ML IV 1012 Chloride Promethazine HCl 25 MG Q4P PRN 01/14 0745 AC 01/14 IV 01/21 0744 0749 Sucralfate 1 GM Q8 01/14 2200 AC 01/17 PO 0529 Vancomycin HCl 1,500 MG Q12H 01/17 1200 AC Sodium Chloride 250 ML IV Review of Systems Review of Systems Constitutional: Reports: see HPI. 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 Home Smoking Status: Current Everyday Smoker Functional Ability ADLs Independent: dressing, eating, toileting, bathing. Ambulation: independent IADLs Independent: shopping, housework, finances, food prep, telephone, transportation , medication admin. ECHO Results (as available) Date of last Echo 01/17/18 EF% 60 Exam & Diagnostic Data Last 24 Hrs of Vital Signs/I&O Vital Signs Date Time Temp Pulse Resp B/P B/P Pulse O2 O2 Flow FiO2 Mean Ox Delivery Rate 01/17 0945 97.6 01/17 08 101.4 01/17 08 91 Nasal 8L Cannula 01/17 07 99.4 112 22 152/88 87 01/17 0657 88 Nasal 6.0L Cannula 01/17 626 99.4 112 24 152/88 90 Nasal 6.0L Cannula 01/17 0000 Nasal 3.0L Cannula 08/04 2121 98.8 103 24 138/92 92 01/16 1600 95 Nasal 3.0L Cannula 01/16 1600 98.4 108 22 112/76 95 Nasal 3.0L Cannula Intake & Output 01/17 0800 08 0000 Intake Total 700 Output Total 600 440 Balance 100 -440 Intake, IV 700 Output, 100 240 Gastric Drainage Output, Urine 500 200 Patient 92.59 kg Weight Physical Exam General Appearance: moderate distress Head: atraumatic, normal appearance Eyes: Bilateral: normal appearance, PERRL, EOMI. Ears, Nose, Throat: normal pharynx Neck: normal inspection, supple Respiratory: decreased breath sounds bilaterally, crackles heard in the mid lung bilaterally. Cardiovascular: regular rate/rhythm, tachycardic Peripheral Pulses: 2+ radial (R), 2+ radial (L) Gastrointestinal: absent/hypotonic bowel sounds sutures present in the mid left abdomen, clean Back: normal inspection Extremities: normal inspection, normal capillary refill, normal range of motion Last 48 Hrs of Labs/Jt: Laboratory Tests 01/17/18 1130: Lactic Acid Pending 01/17/18 0910: Phosphorus 3.8, Troponin I < 0.01, [id number]-[id number] Pept 41.3 01/17/18 0805: pH 7.42, pCO2 37, pO2 69 L, HCO3 23, ABG O2 Sat (Measured) 91.0 L, P-50 (Temp Corrected) Y, Carboxyhemoglobin 2.0, O2 Concentration % 55%, Temperature 101.4 H, O2 Delivery Method VENTI-MASK, Phlebotomy Draw Site RIGHT RADIAL 01/17/18 0616: Anion Gap 10, Estimated GFR > 60, BUN/Creatinine Ratio 20.0, Magnesium 1.9, CBC w Diff NO MAN DIFF REQ, RBC 4.40 L, MCV 94.8 H, MCH 31.8 H, MCHC 33.5, RDW 14.4, MPV 8.4, Gran % 86.2 H, Lymphocytes % 7.2 L, Monocytes % 6.4, Eosinophils % 0.2, Basophils % 0, Absolute Granulocytes 15.6 H, Absolute Lymphocytes 1.3, Absolute Monocytes 1.2 H, Absolute Eosinophils 0, Absolute Basophils 0 01/16/18 0515: Anion Gap 7, Estimated GFR > 60, BUN/Creatinine Ratio 20.0, CBC w Diff NO MAN DIFF REQ, RBC 4.36 L, MCV 95.8 H, MCH 31.9 H, MCHC 33.3, RDW 13.9, MPV 8.0, Gran % 81.7 H, Lymphocytes % 12.9 L, Monocytes % 4.9, Eosinophils % 0.3, Basophils % 0.2, Absolute Granulocytes 13.0 H, Absolute Lymphocytes 2.1, Absolute Monocytes 0.8 H, Absolute Eosinophils 0.1, Absolute Basophils 0 Diagnostic Data EKG Results Normal sinus rhythm with nonspecific T-wave abnormalities CXR Results 01/15/2018 IMPRESSION: Bibasilar airspace disease. This may represent atelectasis and small effusions, however, developing infiltrates cannot be excluded. Other Results CTA chest IMPRESSION: Inadequate study to assess for pulmonary artery embolus. No evidence of thoracic aortic aneurysm or dissection. Findings consistent with pulmonary edema of cardiogenic or noncardiogenic etiology. Bilateral dependent consolidated lung with air bronchograms. Moderate size bilateral pleural effusions. Ascites with single locule of free air identified within the upper abdomen.. Assessment/Plan CRCU Impression/Plan: Patient is 52-year-old male with past medical history significant for hyperlipidemia, abdominal aortic aneurysm 2 cm, presented with intractable back pain and found to have perforated duodenal ulcer. He underwent repair of the perforation and abdominal washout on 01/14/2018. Postoperative course was eventful for low-grade fevers, bilateral opacities on chest x-ray for which he was continued on Unasyn. Today morning he sustained a fever of 101.4, found to have increased oxygen requirement from 3 L to 8 L and subsequently transferred to ICU for close monitoring and CRC consult was placed. Vital signs at the time of transfer - MAXIMUM TEMPERATURE 101.4, pulse rate of 112, blood pressure 150/88 mmHg, saturating well on 8 L of oxygen. Labs today morning did show elevated white count 18.6 with left shift, chemistries are unremarkable, troponin less than 0.01, proBNP 41.3, lactic acid pending. ABG did show hypoxic respiratory failure with a PaO2 of 69 and preserved PaCO2 of 37 (compensating). Imaging workup is significant for CT angiography inconclusive of pulmonary embolus, did show bilateral air bronchograms. Echocardiogram which showed normal ejection fraction with mild tricuspid insufficiency and inconclusive pulmonary pressures. Recommendations: The following is his management in ICU Respiratory Acute hypoxic respiratory failure secondary to postoperative pneumonia Patient is currently on high flow. We will discontinue Unasyn and start on IV ceftazidime and vancomycin. Pancultures. It appears that Previous respiratory culture did show Klebsiella and staph aureus however suboptimal response to Unasyn. Total Respiratory control and nebulizations as needed. Check lactic acid now. Hydrate with D5 normal saline @ 50 ml/hr as appears dehydrated. Strongly encouraged to do Incentive spirometry as tolerated. Infectious Postoperative pneumonia Sputum cultures did grow Klebsiella and staph aureus, although less than 3 days after starting Unasyn patient condition decompensated. Antibiotics were broadened with IV ceftazidime and vancomycin. We will repeat sputum culture , blood cultures and obtain a Check lactic acid Cardiology ? Pulmonary embolus Acute respiratory decompensation with evidence of pneumonia postoperatively. ABG is more consistent with hypoxia. The probability of pulmonary embolus in the setting is very low however presence of small emboli still cannot be excluded. ECHO shows EF 60-65% but unable to estimate pulmonary pressures. We will obtain lower extremity Dopplers to rule out deep vein thrombosis. Cardiology consulted for further evaluation and recs. Meanwhile we will continue SC heparin for DVT prophylaxis. HLD Patient was on atrovastatin 20mg and ASA at home which were on hold Hem/onc stable Metabolic stable Alimentary Perforated duodenal ulcer s/p fernando patch & abdominal washout NPO with NG suction in palce. No bowel sounds/flatus so far. Surgery on board, will follow their recs. Neurology Alert and oriented, able to understand conversations. DVT prophylaxis SC heparin Code status Full Code Problem List: 1. Perforated abdominal viscus 2. Abdominal pain 3. Postoperative pneumonia Consult Acknowledgment - Thank you for your consult request. July CROWE,Abiel Oliva 01/17/18 1054: General Information and HPI Allergies/Medications Current Medications: Current Medications Sig/Alana Start time Last Medication Dose Route Stop Time Status Admin Acetaminophen 1,000 MG .STK-MED ONE 01/17 2000 DC IV 01/16 2001 Acetaminophen 1,000 MG Q6P PRN 01/14 1200 AC 01/17 N/A 1 UNIT IV 0809 Ampicillin Sodium/ 3,000 MG Q6 01/14 0735 DC 01/17 Sulbactam Sodium IV 0529 Sodium Chloride 100 ML Ceftazidime 1,000 MG IQ8 01/17 1600 DC IV Ceftazidime 1,000 MG Q8H 01/17 1100 AC IV Furosemide 20 MG ONCE ONE 01/17 0945 DC 01/17 IV 01/17 0946 0950 Heparin Sodium 5,000 UNIT Q8 01/14 2200 AC 01/17 (Porcine) SC 0529 Hydromorphone HCl 0.5 MG Q4P PRN 01/15 0615 AC 01/17 IV 0851 Hydromorphone HCl 1 MG Q4 HRS NEEDED PRN 01/14 0645 AC 01/17 IV 0528 Lidocaine 1 PAT DAILY 01/14 0900 AC 01/17 EXT 1006 Nicotine 21 MG DAILY 01/14 0900 AC 01/17 TOP 1003 Pantoprazole Sodium 40 MG DAILY 01/14 1153 AC 01/17 IV 1003 Phenol 2 SPRAY Q2P PRN 01/14 1700 AC 01/16 EXT 1717 Potassium Chloride 20 MEQ Q20H 01/17 1045 AC Dextrose/Sodium 1,000 ML IV Chloride Potassium Chloride 20 MEQ Q10H 01/16 1000 DC 01/17 Dextrose/Sodium 1,000 ML IV 1012 Chloride Promethazine HCl 25 MG Q4P PRN 01/14 0745 AC 01/14 IV 01/21 0744 0749 Sucralfate 1 GM Q8 01/14 2200 AC 01/17 PO 0529 Vancomycin HCl 1,500 MG Q12H 01/17 1200 AC Sodium Chloride 250 ML IV Assessment/Plan CRCU Other Findings/Comments: I have personally seen and examined the patient and agree with the resident's assessment and plan as detailed above. Briefly, the patient is a 52-year-old male, with a past medical history significant for hyperlipidemia, who is postop day #3 status post exploratory laparotomy, with Fernando patch placement for perforated duodenal ulcer. The patient was in the critical care unit postoperatively and was doing well. Postoperatively, it was noted however the patient was mildly intermittently tachycardic. On 01/15/2018, a chest x-ray was done that showed bibasilar airspace disease thought to represent atelectasis and small effusions however developing infiltrates cannot be excluded. Sputum culture was done and sent demonstrating Klebsiella and staph aureus. Yesterday, the patient developed worsening hypoxia and was requiring 3 L nasal cannula with saturations in the low 90s. Aggressive pulmonary toilet and incentive spirometry were done. The patient was placed on Unasyn and Diflucan empirically. the patient also continued to have increased NG tube output and has been n.p.o. overnight, the patient was febrile and began to experience worsening oxygen desaturations. He became tachypneic, tachycardic, diaphoretic and required 55% oxygen to maintain his saturations. A CT angiogram of the chest was performed, however this was an inadequate study to assess for pulmonary emboli. There was no evidence of thoracic aortic aneurysm or dissection. There was evidence of pulmonary edema, bibasilar lung consolidation, moderate bilateral pleural effusions, and ascites with a small amount of free air within the upper abdomen, presumed postsurgical (general surgery aware of findings). The patient was transferred to the critical care unit, given Lasix 20 mg IV 1, and started on high flow oxygen with some relief. The patient is currently awake, alert and states that his breathing is better. He denies any worsening abdominal pain, nausea, vomiting or chest pain. Impression: 1. Multi lobar bilateral aspiration pneumonia, with consolidation and compressive atelectasis. 2. Moderate bilateral pleural effusions, rule out volume overload versus parapneumonic effusions. 3. Acutely worsening hypoxemic respiratory failure secondary to pneumonia. 4. CT angiogram done, inadequate bolus, smaller pulmonary emboli could not be excluded. 5. Mediastinal adenopathy, seen on CT scan, likely reactive. Plan: * Check CBC and ICU bundle every 8 hours today. * Check a stat lactic acid. * Panculture again. * Give vancomycin, 1 dose today. We consider changing to Vanco and ceftaz however the patient is growing Klebsiella which is sensitive to Unasyn. We will continue for now. * Follow-up current sputum cultures. * Check lower extremity Dopplers to rule out DVT. * Lasix 20 mg IV 1 given. * Check a BNP and echocardiogram. Check an EKG. * Please request a cardiology consult. * Montel[place] catheter placement. * Strict I's and O's. * High flow oxygen to maintain saturations greater than 92%. * BiPAP only if needed. * Low threshold for intubation if the patient's respiratory status worsens. * Continue nebs/TRC. Aggressive pulmonary toilet. * DVT prophylaxis at all times. * I discussed the plan of care with the housestaff. I asked them to contact me should the patient's condition change or if they have any questions. * The patient's family including his were updated at the bedside at length. Consult Acknowledgment - Thank you for your consult request.
--- NOTE | 2018-01-17 11:41 | ECHOCARDIOGRAM REPORT ---
JORJE INGRAM Age: 52 : 1965 Gender: M Exam Date: 01/17/2018 10:13 Exam Location: [facility] Ht (in): 70 Wt (lb): 204 BSA: 2.16 BP: 152 / 88 Ordering Physician: Luciana Babin MD Referring Physician: Luciana Babin MD Technologist: Joanne Abernathy DOT Room Number: 109 Indications: Respiratory failure Rhythm: Sinus Technical Quality: Fair, Technically difficult study FINDINGS Left Ventricle Normal size left ventricle. No obvious regional wall motion abnormalities. Normal left ventricular ejection fraction estimated at 60-65%. Right Ventricle Right ventricle not well visualized, grossly normal. Right Atrium Normal right atrial size. Left Atrium Normal left atrial size. Mitral Valve Mitral valve thickened. Trace mitral regurgitation. Aortic Valve Structurally normal trileaflet aortic valve. No aortic stenosis. No aortic regurgitation. Tricuspid Valve Tricuspid valve not well visualized, grossly normal. Pulmonic Valve Pulmonic valve not well visualized, grossly normal. Pericardium No pericardial effusion. Great Vessels Normal size aortic root and proximal ascending aorta. CONCLUSIONS 1. The aortic valve is trileaflet and normal 2. Mitral leaflet thickening is present with minimal chelo insufficiency. 3. There is no pericardial fluid present 4. The left ventricular chamber size and systolic function appear normal 5. The right heart structures are grossly normal. Minimal tricuspid insufficiency is present. The RV systolic pressure could not be assessed on this examination. Angela Davis M.D. (Electronically Signed) Final Date: 17 January 2018 11:36 MEASUREMENTS (Male / Female) Normal Values 2D ECHO LV Diastolic Diameter PLAX 4.3 cm 4.2 - 5.9 / 3.9 - 5.3 cm LV Systolic Diameter PLAX 2.2 cm 2.1 - 4.0 cm LV Fractional Shortening PLAX 48.8 % 25 - 46 % LV Ejection Fraction 2D Teich 80.5 % IVS Diastolic Thickness 1.1 cm LVPW Diastolic Thickness 1.0 cm LV Relative Wall Thickness 0.5 RV Internal Dim ED PLAX 2.5 cm 1.9 - 3.8 cm LVOT Diameter 2.2 cm Aortic Root Diameter 3.4 cm LA Systolic Diameter LX 2.8 cm 3.0 - 4.0 / 2.7 - 3.8 cm LA Volume 32.0 cm 18 - 58 / 22 - 52 cm Ascending Aorta Diameter 3.2 cm DOPPLER AV Peak Velocity 133.0 cm/s AV Peak Gradient 7.1 mmHg AV Mean Velocity 84.6 cm/s AV Mean Gradient 3.0 mmHg AV Velocity Time Integral 22.0 cm LVOT Peak Velocity 96.1 cm/s LVOT Peak Gradient 3.7 mmHg LVOT Mean Velocity 61.9 cm/s LVOT Mean Gradient 2.0 mmHg LVOT Velocity Time Integral 16.0 cm LVOT Stroke Volume 60.8 cm AV Area Cont Eq vti 2.8 cm AV Area Cont Eq pk 2.7 cm MV Peak Velocity 79.3 cm/s MV Peak Gradient 2.5 mmHg MV Mean Velocity 58.6 cm/s MV Mean Gradient 1.0 mmHg Mitral E Point Velocity 78.5 cm/s Mitral A Point Velocity 68.1 cm/s Mitral E to A Ratio 1.2 MV PHT Velocity 79.1 cm/s MV Deceleration Kent 463.0 cm/s MV Pressure Half Time 51.3 ms MV Area PHT 4.3 cm MV Deceleration Time 193.0 ms TR Peak Velocity 117.0 cm/s TR Peak Gradient 5.5 mmHg Right Atrial Pressure 5.0 mmHg Pulmonary Artery Systolic Pressure 10.5 mmHg Right Ventricular Systolic Pressure 10.5 mmHg PV Peak Velocity 113.0 cm/s PV Peak Gradient 5.1 mmHg PV Mean Velocity 69.0 cm/s PV Mean Gradient 2.0 mmHg PV Velocity Time Integral 19.9 cm LV E' Lateral Velocity 11.4 cm/s Mitral E to LV E' Lateral Ratio 6.9 LV E' Septal Velocity 8.5 cm/s Mitral E to LV E' Septal Ratio 9.3
[2018-01-17] MEDS ORDERED: ALBUTEROL2.5 MG/3 M INH (14:43)
[2018-01-17] MEDS ORDERED: VANCOMYCIN1.5 GM/252 IV (14:43)
[2018-01-17] MEDS ORDERED: PANTOPRAZOLE SO40 M2 IV (14:43)
[2018-01-17] MEDS ORDERED: PHENASEPTIC177 ML EXT (14:43)
[2018-01-17] MEDS ORDERED: NICOTINE PATCH1 EAC3 TOP (14:43)
[2018-01-17] MEDS ORDERED: LIDODERM1 EACH EXT (14:43)
[2018-01-17] MEDS ORDERED: CEFTAZIDIME1 G2 IV (14:43)
[2018-01-17] MEDS ORDERED: SUCRALFATE1 GM/10 M1 PO (14:43)
[2018-01-17] MEDS ORDERED: HEPARIN SO5000 UNIT3 SC (14:43)
[2018-01-17] MEDS ORDERED: PROMETHAZI25 MG/1 M1 IV (14:43)
[2018-01-17] MEDS ORDERED: HYDROMORPHO2 MG/1 M3 IV ×2 (14:43)
--- NOTE | 2018-01-17 14:43 | Discharge Summary ---
See Addendum Visit Information Visit Dates Admission Date: 01/14/18 Discharge Date: 01/17/18 Hospital Course Course Attending Physician: Carlos CROWE,Vick Aguirre Primary Care Physician: Unknown Consulting Request: Consulting Specialty: Cardiology Consulting Physician: Reason for Consult: Shortness of breath Hospital Course: Patient is 52-year-old male with past medical history significant for hyperlipidemia, abdominal aortic aneurysm 2 cm, presented with intractable back pain and found to have perforated duodenal ulcer. He underwent repair of the perforation and abdominal washout on 01/14/2018. Postoperative course was eventful for low-grade fevers, bilateral opacities on chest x-ray for which he was continued on Unasyn. Today morning he sustained a fever of 101.4, found to have increased oxygen requirement from 3 L to 8 L and subsequently transferred to ICU for close monitoring and CRC consult was placed. Vital signs at the time of transfer - MAXIMUM TEMPERATURE 101.4, pulse rate of 112, blood pressure 150/88 mmHg, saturating well on 8 L of oxygen. Labs today morning did show elevated white count 18.6 with left shift, chemistries are unremarkable, troponin less than 0.01, proBNP 41.3, lactic acid 0.9. ABG did show hypoxic respiratory failure with a PaO2 of 69 and preserved PaCO2 of 37 ( compensating). Imaging workup is significant for CT angiography inconclusive of pulmonary embolus, did show bilateral air bronchograms. Echocardiogram which showed normal ejection fraction with mild tricuspid insufficiency and inconclusive pulmonary pressures. Plan Acute hypoxic respiratory failure secondary to postoperative pneumonia Patient is currently on high flow. We discontinued Unasyn today and started on IV ceftazidime and vancomycin. Pancultured. Previous respiratory culture on 01/15/18 did show Klebsiella and staph aureus however not responsed to Unasyn. Hydrated with D5 normal saline @ 125 ml/hr as appears dehydrated. Strongly encouraged to do Incentive spirometry as tolerated. ? Pulmonary embolus Acute respiratory decompensation with evidence of pneumonia postoperatively. ABG is more consistent with hypoxia. The probability of pulmonary embolus in the setting is very low however presence of small emboli still cannot be excluded. ECHO shows EF 60-65% but unable to estimate pulmonary pressures. We obtained lower extremity Dopplers which ruled out deep vein thrombosis. Cardiology consulted for further evaluation and recs. Meanwhile we will continue SC heparin for DVT prophylaxis. HLD Patient was on atrovastatin 20mg and ASA at home which were on hold s/p exploratroy lap with trista patch placement for perforated PUD -- POD #3 NPO with NG suction in palce. No bowel sounds/flatus so far. Surgery on board, will follow their recs. DVT prophylaxis SC heparin Code status Full Code Complications: Postoperative pneumonia requiring high flow transferred to ICU and then to higher level of care. Allergies: Coded Allergies: No Known Allergies (08/19/17) Significant Procedures: ECHO on 01/17/18 CONCLUSIONS 1. The aortic valve is trileaflet and normal 2. Mitral leaflet thickening is present with minimal chelo insufficiency. 3. There is no pericardial fluid present 4. The left ventricular chamber size and systolic function appear normal 5. The right heart structures are grossly normal. Minimal tricuspid insufficiency is present. The RV systolic pressure could not be assessed on this examination. CTA of chest on 01/17/18 IMPRESSION: Inadequate study to assess for pulmonary artery embolus. No evidence of thoracic aortic aneurysm or dissection. Findings consistent with pulmonary edema of cardiogenic or noncardiogenicetiology. Bilateral dependent consolidated lung with air bronchograms Moderate size bilateral pleural effusions. Ascites with single locule of free air identified within the upper abdomen.. CXR on 01/15/18 IMPRESSION: Bibasilar airspace disease. This may represent atelectasis and small effusions, however, developing infiltrates cannot be excluded Thoracic and lumbar spine CT on 01/14/18 IMPRESSION: Acute onset of free intraperitoneal air and free fluid due to a perforated viscus most likely the duodenum. Increasing bibasilar lung disease which could reflect aspiration. CT angio on 01/13/18 for progression of AAA IMPRESSION: No aortic dissection. Aneurysmal dilation of the anterior aspect of the distal abdominal aorta to 2 cm in diameter, compared to 1.6 cm proximally. See aguilar image. Bilateral renal cysts. Pertinent Lab Results: as above Sputum cultures on 01/15/18 did grew Klebsiella.pneumoniae and staph aureus. Disposition Summary Disposition Principal Diagnosis: Acute hypoxic respiratory failure secondary to postoperative pneumonia s/p exploratroy lap with trista patch placement for perforated PUD -- POD #3 Additional Diagnosis: HLD Discharge Disposition: other general hospital Discharge Instructions General Discharge Information Code Status: Full Code Patient's Diet: NPO Patient's Activity: bedrest since admission Follow-Up Instructions/Appts: Please follow up with as outpatient if prefers to Please follow up with [facility] recs Medications at Discharge Discharge Medications: Stop taking the following medications: Aspirin (Ecotrin*) 81 MG TABLET.DR ORAL as needed for HEART/BLOOD Atorvastatin Calcium (Atorvastatin Calcium) 20 MG TABLET ORAL DAILY Qty = 90 Methocarbamol (Robaxin-750) 750 MG TABLET ORAL DAILY Qty = 42 Hydrocodone/Acetaminophen (Vicodin 5-300 MG Tablet) 5 MG-300 MG TABLET Qty = 12 Phenylephrine/Dm/Acetaminop/GG (Cold & Flu Severe Caplet) (Unknown Strength) TABLET ORAL As Directed as needed for COLD SYMPTOMS Start taking the following new medications: Promethazine HCl (Promethazine HCl) 25 MG/ML AMPUL 25 Milligram IV EVERY 4 HOURS NEEDED as needed for NAUSEA/VOMITING Qty = 10 No Refills Ceftazidime (Ceftazidime) 1 GRAM VIAL 1,000 Milligram IV Q8H Qty = 10 No Refills Albuterol Sulfate (Albuterol Sulfate) 2.5 MG/3 ML (0.083 %) VIAL.NEB 3 Milliliters Inhale through mouth TWICE DAILY Qty = 10 No Refills Nicotine (Nicotine Patch) 21 MG/24 HOUR PATCH.TD24 1 PATCH On the skin DAILY Qty = 30 No Refills Heparin Sodium,Porcine (Heparin Sodium) 5,000 UNIT/ML VIAL 5,000 Unit SC EVERY 8 HOURS Qty = 10 No Refills Hydromorphone (Hydromorphone HCl 2 MG/Ml Amp) 2 MG/ML AMPUL 1 Milligram IV EVERY 4 HOURS NEEDED as needed for PAIN 9-10 Qty = 10 No Refills Hydromorphone (Hydromorphone HCl 2 MG/Ml Amp) 2 MG/ML AMPUL 0.5 Milligram IV EVERY 4 HOURS NEEDED as needed for PAIN SCALE 4-6 ( MODERATE) Qty = 10 No Refills Chloraseptic (Phenaseptic) 1.4 % SPRAY 2 Forsan ON SKIN EVERY 2 HOURS NEEDED as needed for PAIN Qty = 1 No Refills Sucralfate (Sucralfate) 1 GRAM/10 ML ORAL.SUSP 1 Gram ORAL EVERY 8 HOURS Qty = 30 No Refills Pantoprazole Sodium (Pantoprazole Sodium) 40 MG VIAL 1 VIAL IV DAILY Qty = 30 No Refills Lidocaine (Lidoderm) 5 % ADH..PATCH 1 Patch ON SKIN DAILY Qty = 30 No Refills Vancomycin HCl in Dextrose 5 % (Vancomycin 1.5 Gram/250 Ml-D5w) 1.5 GRAM/250 ML PLAST..BAG 1 Bag IV DAILY Qty = 5 No Refills Potassium Chloride/D5-0.45NACL (D5%-1/2NS-KCl 10 Meq/L IV Viktoriya) 10 MEQ/L IV.SOLN 1 Bag IV CONTINOUS Qty = 1 No Refills Instructions: @125ML/H Copies To: July CROWE,Abiel Oliva; Luis Alberto Nieto DO; Carlos CROWE,Vick N. Attending MD Review Statement Documenting Attending: Abiel Mcdowell MD
[2018-01-17] MEDS ORDERED: D5%-1/2NS-10 MEQ/100 IV (14:46)
[2018-01-17] MEDS ORDERED: VICODIN 5-3001 EACH (14:46)
--- NOTE | 2018-01-17 14:46 | Patient Discharge Instructions ---
Discharge Instructions General Discharge Information You were seen/treated for: Perforated duodenal ulcer Postoperative pneumonia Special Instructions: Please follow up with [facility] recs Please follow up with surgical instructions Diet Recommended Diet: NPO Activity Full Activity/No Limits: No Activity Self Limited: Yes Acute Coronary Syndrome Inclusion Criteria At DC or during hospital stay patient has or had the following: ACS DIAGNOSIS No Discharge Core Measures Meds if any: Prescribed or Continued at Discharge Meds if any: NOT Prescribed or Continued at Discharge Congestive Heart Failure Inclusion Criteria At DC or during hospital stay patient has or had the following: CHF DIAGNOSIS No Discharge Core Measures Meds if any: Prescribed or Continued at Discharge Meds if any: NOT Prescribed or Continued at Discharge Cerebrovascular accident Inclusion Criteria At DC or during hospital stay patient has or had the following: CVA/TIA Diagnosis No Discharge Core Measures Meds if any: Prescribed or Continued at Discharge Meds if any: NOT Prescribed or Continued at Discharge Venous thromboembolism Inclusion Criteria VTE Diagnosis No VTE Type NONE VTE Confirmed by (Test) NONE Discharge Core Measures - Per Current guidelines, there needs to be overlap - treatment for the first 5 days of Warfarin therapy. - If discharged on Warfarin prior to 5 days of - overlap therapy, the patient will need to be - assessed for post discharge needs including - *Post discharge parental anticoagulation - *Warfarin and/or parental anticoagulation education - *Follow up date to check INR post discharge At least 5 days overlap therapy as Inpatient No Meds if any: Prescribed or Continued at Discharge Note: Overlap Therapy is Warfarin and Anticoagulant Meds if any: NOT Prescribed or Continued at Discharge
[2018-01-17] MEDS ORDERED: ROBAXIN-750750 M1 PO (14:47)
--- NOTE | 2018-01-17 14:58 | Cons- Cardiology ---
General Information and HPI Consulting Request Date of Consult: 01/17/18 Requested By: Carlos CROWE,Vick Aguirre Reason for Consult: SOB History of Present Illness: The patient is a 52-year-old male with history of hyperlipidemia who presented to the hospital with sudden onset of pain in his back and abdomen. He was found to have a duodenal perforation. Surgery was performed on January 14 with placement of a patch for perforated duodenal ulcer. He was noted to be mildly tachycardic postoperatively. A chest x-ray was performed which revealed basilar airspace disease and small effusions with possible developing infiltrates. He developed worsening hypoxia. He has been started on antibiotic therapy for possible pneumonia. Lasix has been given for pleural effusions. We are consulted for evaluation of possible cardiac etiology for the shortness of breath and hypoxia. He does not have any history of heart disease. He complains of abdominal discomfort near his incision. No chest pain. No palpitations. No diaphoresis. No nausea or vomiting. Allergies/Medications Allergies: Coded Allergies: No Known Allergies (08/19/17) Home Med List: Aspirin (Ecotrin*) 81 MG TABLET.DR 1 TAB PO PRN HEART/BLOOD (Reported) Atorvastatin Calcium 20 MG TABLET 1 TAB PO DAILY CHOLESTEROL (Reported) Current Medications: Current Medications Sig/Alana Start time Last Medication Dose Route Stop Time Status Admin Acetaminophen 1,000 MG .STK-MED ONE 01/17 2000 DC IV 01/16 2001 Acetaminophen 1,000 MG Q6P PRN 01/14 1200 AC 01/17 N/A 1 UNIT IV 0809 Albuterol Sulfate 3 ML BID 01/17 2100 AC INH Ampicillin Sodium/ 3,000 MG Q6 01/14 0735 DC 01/17 Sulbactam Sodium IV 0529 Sodium Chloride 100 ML Ceftazidime 1,000 MG IQ8 01/17 1600 DC IV Ceftazidime 1,000 MG Q8H 01/17 1100 AC 01/17 IV 1108 Furosemide 20 MG ONCE ONE 01/17 0945 DC 01/17 IV 01/17 0946 0950 Heparin Sodium 5,000 UNIT Q8 01/14 2200 AC 01/17 (Porcine) SC 0529 Hydromorphone HCl 0.5 MG Q4P PRN 01/15 0615 AC 01/17 IV 0851 Hydromorphone HCl 1 MG Q4 HRS NEEDED PRN 01/14 0645 AC 01/17 IV 1157 Lidocaine 1 PAT DAILY 01/14 0900 AC 01/16 EXT 0919 Nicotine 21 MG DAILY 01/14 0900 AC 01/16 TOP 0918 Pantoprazole Sodium 40 MG DAILY 01/14 1153 AC 01/17 IV 1003 Phenol 2 SPRAY Q2P PRN 01/14 1700 AC 01/16 EXT 1717 Potassium Chloride 20 MEQ Q20H 01/17 1045 AC 01/17 Dextrose/Sodium 1,000 ML IV 1206 Chloride Potassium Chloride 20 MEQ Q10H 01/16 1000 DC 01/17 Dextrose/Sodium 1,000 ML IV 1012 Chloride Promethazine HCl 25 MG Q4P PRN 01/14 0745 AC 01/14 IV 01/21 0744 0749 Sucralfate 1 GM Q8 01/14 2200 AC 01/17 PO 0529 Vancomycin HCl 1,500 MG Q12H 01/17 1200 AC 01/17 Sodium Chloride 250 ML IV 1206 Review of Systems Review of Systems: No rash. No tremor. No hemoptysis. No hematemesis. All other systems were reviewed, and were noted to be negative. 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 Home Smoking Status: Current Everyday Smoker Functional Ability ADLs Independent: dressing, eating, toileting, bathing. Ambulation: independent IADLs Independent: shopping, housework, finances, food prep, telephone, transportation , medication admin. ECHO Results (as available) Date of last Echo 01/17/18 EF% 60 Exam & Diagnostic Data Vital Signs and I&O Vital Signs Date Time Temp Pulse Resp B/P B/P Pulse O2 O2 Flow FiO2 Mean Ox Delivery Rate 01/17 1200 95 Nasal 65% Cannula 01/17 0945 97.6 01/17 08 101.4 01/17 08 91 Nasal 8L Cannula 01/17 0710 99.4 112 22 152/88 87 01/17 06 88 Nasal 6.0L Cannula 01/17 626 99.4 112 24 152/88 90 Nasal 6.0L Cannula 01/17 0000 Nasal 3.0L Cannula 01/16 2121 98.8 103 24 138/92 92 01/17 1600 95 Nasal 3.0L Cannula 01/17 1600 98.4 108 22 112/76 95 Nasal 3.0L Cannula Intake & Output 01/17 0000 01/16 0000 Intake Total 193 207 3486 1234 Output Total 600 440 955 900 660 Balance 100 -440 -12 170 574 Intake, IV 892 679 6689 1204 Intake, Oral 10 30 Number 0 Bowel Movements Output, 100 240 280 300 100 Gastric Drainage Output, Urine 500 200 675 600 560 Patient 204 lb 194 lb Weight Physical Exam: Gen: The patient is in no acute distress HEENT: Normal nose, ears, and oropharynx. Pupils equal bilaterally. Conjunctiva normal. Neck: Supple with no JVD, no masses, and no thyromegaly Lungs: Decreased breath sounds with scattered rales and normal respiratory effort Heart: RRR, S1, S2, no murmurs. No peripheral edema, 2+ pulses in the lower extremities bilaterally Abdomen: Soft, nontender, no masses. No hepatomegaly. No splenomegaly Extremities: No clubbing or cyanosis. Normal muscle strength in the upper and lower extremities Skin: Normal skin turgor with no skin ulcers or lesions noted. Neuro: Cranial nerves intact. Sensation intact Psych: Alert and oriented x 3 with appropriate affect Labs/Jt Results: Laboratory Tests 01/17 01/17 01/17 1130 0910 0805 Blood Gas pH (7.35 - 7.45 PH) 7.42 pCO2 (35 - 45 TORR) 37 pO2 (80 - 100 TORR) 69 L HCO3 (21 - 28 MEQ/L) 23 ABG O2 Sat (Measured) (>96.0 %) 91.0 L P-50 (Temp Corrected) Y Carboxyhemoglobin (1.5 - 5.0 %) 2.0 O2 Concentration % 55% Temperature (97.0 - 100.0 FARH) 101.4 H O2 Delivery Method VENTI-MASK Chemistry Lactic Acid (0.7 - 2.1 mmol/L) 0.9 Phosphorus (2.5 - 4.5 mg/dL) 3.8 Troponin I (<0.11 ng/ml) < 0.01 [id number]-[id number] Pept (<125 pg/mL) 41.3 Miscellaneous Phlebotomy Draw Site RIGHT RADIAL 01/17 01/16 5686 5431 Chemistry Sodium (137 - 145 mmol/L) 139 135 L Potassium (3.5 - 5.1 mmol/L) 3.7 3.6 Chloride (98 - 107 mmol/L) 106 105 Carbon Dioxide (22 - 30 mmol/L) 22 24 Anion Gap (5 - 16) 10 7 BUN (9 - 20 mg/dL) 12 12 Creatinine (0.7 - 1.2 mg/dL) 0.6 L 0.6 L Estimated GFR (>60 ml/min) > 60 > 60 BUN/Creatinine Ratio (7 - 25 %) 20.0 20.0 Magnesium (1.6 - 2.3 mg/dL) 1.9 Hematology CBC w Diff NO MAN DIFF REQ NO MAN DIFF REQ WBC (4.8 - 10.8 /CUMM) 18.0 H 15.9 H RBC (4.70 - 6.10 /CUMM) 4.40 L 4.36 L Hgb (14.0 - 18.0 G/DL) 14.0 13.9 L Hct (42 - 52 %) 41.8 L 41.8 L MCV (80.0 - 94.0 FL) 94.8 H 95.8 H MCH (27.0 - 31.0 PG) 31.8 H 31.9 H MCHC (33.0 - 37.0 G/DL) 33.5 33.3 RDW (11.5 - 14.5 %) 14.4 13.9 Plt Count (130 - 400 /CUMM) 274 251 MPV (7.4 - 10.4 FL) 8.4 8.0 Gran % (42.2 - 75.2 %) 86.2 H 81.7 H Lymphocytes % (20.5 - 51.1 %) 7.2 L 12.9 L Monocytes % (1.7 - 9.3 %) 6.4 4.9 Eosinophils % (0 - 5 %) 0.2 0.3 Basophils % (0.0 - 2.0 %) 0 0.2 Absolute Granulocytes (1.4 - 6.5 /CUMM) 15.6 H 13.0 H Absolute Lymphocytes (1.2 - 3.4 /CUMM) 1.3 2.1 Absolute Monocytes (0.10 - 0.60 /CUMM) 1.2 H 0.8 H Absolute Eosinophils (0.0 - 0.7 /CUMM) 0 0.1 Absolute Basophils (0.0 - 0.2 /CUMM) 0 0 Diagnostic Data EKG Results EKG tracing is independently reviewed, and reveals normal sinus rhythm at 99 with borderline T-wave abnormality CXR Results Bibasilar airspace disease. This may represent atelectasis and small effusions, however, developing infiltrates cannot be excluded. Other Results CTA chest: Inadequate study to assess for pulmonary artery embolus. No evidence of thoracic aortic aneurysm or dissection. Findings consistent with pulmonary edema of cardiogenic or noncardiogenic etiology. Bilateral dependent consolidated lung with air bronchograms. Moderate size bilateral pleural effusions. Ascites with single locule of free air identified within the upper abdomen. Echocardiogram 01/17/18: 1. The aortic valve is trileaflet and normal 2. Mitral leaflet thickening is present with minimal chelo insufficiency. 3. There is no pericardial fluid present 4. The left ventricular chamber size and systolic function appear normal 5. The right heart structures are grossly normal. Minimal tricuspid insufficiency is present. The RV systolic pressure could not be assessed on this examination. Assessment/Plan Assessment/Plan The patient is a 52-year-old male with history of hyperlipidemia and abdominal aortic aneurysm who presented with perforated duodenal ulcer, for which surgery was performed. He is noted to have fever and shortness of breath status post surgery. He has been started on Unasyn for possible pneumonia. CT angiogram was inconclusive for pulmonary embolism. Echocardiogram revealed normal ejection fraction. RV systolic pressure could not be assessed. The patient was given a one-time dose of furosemide this morning for possible volume overload. Pro-BNP is normal. The clinical findings are not suggestive of congesti continue IV antibiotics for possible pneumonia ve heart failure. Recommendations: * Continue IV antibiotic therapy for possible pneumonia * Would not place on standing order of diuretic at this time. Would continue to monitor and give individual doses of Lasix as needed. * Doppler studies are pending to rule out deep vein thrombosis Consult Acknowledgment - Thank you for your consult request.
--- NOTE | 2018-01-17 15:20 | ULTRASOUND REPORT ---
EXAMINATION: US TRIPLEX OF LOWER EXTREMITIES, BILATERAL CLINICAL INFORMATION: Cerebrum respiratory decompensation after surgery. Evaluate for DVT. COMPARISON: None TECHNIQUE: Color-flow triplex imaging with spectral analysis and compression Doppler were performed on the lower extremities. FINDINGS: Respiratory variation, normal compression and augmented flow are noted throughout the lower extremities. The visualized common femoral vein, superficial femoral vein, profunda femoral vein, popliteal vein and midcalf peroneal and posterior tibial venous segments show no evidence of deep venous thrombosis. There is no Casillas's cyst. IMPRESSION: No evidence of deep venous thrombosis involving the bilateral lower extremities.
[2018-01-17 16:00] VITALS: BP 140/80
--- NOTE | 2018-01-17 16:24 | Event Note ---
Event Note Event Note: I have personally seen and examined the patient once again. The patient remains hemodynamically stable in the critical care unit. His oxygen saturations are in the mid 90s on 65% high flow. The patient is comfortable and speaking in full sentences. He does not have significant labored breathing. He is no longer diaphoretic. His heart rate has improved and is in the mid 90s. I discussed the case with the patient's , brothers and extended family at length. All family members were updated on the patient's current status. They are aware that the patient has the postoperative complication of aspiration pneumonia. They understand the patient has been cultured and placed on empiric antibiotics. They understand he is in hypoxemic respiratory failure due to the pneumonia. The patient was evaluated by cardiology, noting he had a relatively normal echocardiogram and is not thought to be in heart failure. After much discussion with surgery and the patient's family, the decision was made to transfer the patient to a higher level of care for ongoing treatment and in the event of progressive respiratory failure. At present, the patient does not appear that he will require intubation pre-transfer. I have however expressed my concerns to the patient's family, surgical team, housestaff and nursing staff about the potential for decompensation in route. At this time, because the patient is feeling better and is stable, we will transfer him on a nonrebreather and possibly 100% with CPAP in route. Once the ambulance service is available at the bedside, they will also assess the patient's respiratory status for stability prior to placing him in the ambulance. I discussed this plan with the pulmonary critical care attending (Dr. Garduno) at [facility] who will be accepting the patient. All family members were updated and are in agreement with the plan at the present time. TTS 1 hour.
== END 2018-01-17 18:00 | disposition short-term general hospital (02) | DRG 223 ==
LOC: ERH 19:10 → ERHI 21:20 → ENRESERV 21:53 → CRI 22:14 → ENTRNSPT 22:17 → EDTRNSPT 22:39 → EDTRNSPTSTS 22:39 → 2NA 22:40 → CMPTRNSPT 22:53 → 2NA 01-14 07:42 → CRI 01-14 07:42 → 2NA 01-14 08:15 → ENRESERV 01-14 12:10 → ENTRNSPT 01-14 12:33 → EDTRNSPT 01-14 12:48 → EDTRNSPTSTS 01-14 12:48 → CRI 01-14 12:55 → CMPTRNSPT 01-14 13:06 → CRI 01-15 07:51 → ENTRNSPT 01-16 20:08 → EDTRNSPT 01-16 20:42 → EDTRNSPTSTS 01-16 20:42 → 1NO 01-16 20:55 → CMPTRNSPT 01-16 21:07 → DELTRNSPT 01-16 21:11 → CRI 01-17 09:44
PROVIDERS: Nurse Practitioner; Physician Assistant; Physician Assistant Surgical
PROC: 0DU907Z Supplement Duodenum with Autologous Tissue Substitute, Open Approach (ICD-10-PCS; principal; 2018-01-14)
PROC: 3E0T3BZ Introduction of Anesthetic Agent into Peripheral Nerves and Plexi, Percutaneous Approach (ICD-10-PCS; 2018-01-14)
DX: K26.1 Acute duodenal ulcer with perforation (principal); J69.0 Pneumonitis due to inhalation of food and vomit; K65.9 Peritonitis, unspecified; J96.01 Acute respiratory failure with hypoxia; N28.1 Cyst of kidney, acquired; E78.5 Hyperlipidemia, unspecified; I71.4 Abdominal aortic aneurysm, without rupture; J15.0 Pneumonia due to Klebsiella pneumoniae; E87.79 Other fluid overload; J15.211 Pneumonia due to Methicillin susceptible Staphylococcus aureus; J95.89 Other postprocedural complications and disorders of respiratory system, not elsewhere classified; F17.200 Nicotine dependence, unspecified, uncomplicated
CPT/HCPCS: 1NP; CCU; 36415; 36592; 71045; 71046; 74174; 82436; 87040; 87070; 87086; 87147; 93005; 93010; 93306; 93970; 94799; 96361; 96374; 96375; 96376; J0131; J0713; J1450; J1644; J1650; J1885; J2550; J2930; J3360; J3370; J7040; J7042; S5012